=== PATIENT | male | born 1975 | race African-American/Black ===

== ENCOUNTER 2016-02-15 04:25 | Inpatient (IN) | payer MEDICARE, OTHER ==
[~2016-02-15] VITALS: Ht 180.3 cm; Wt 99.3 kg
[2016-02-15 06:26] VITALS: BP 127/68; PULSE 96; RESP 16; TEMP 97.9; O2SAT 98
[2016-02-15] MEDS ORDERED: LORazepam 2 MG/ML VIAL IM PRN (06:45)
[2016-02-15] MEDS ORDERED: ALUMINUM/MAGNESIUM/SIMETH 30 ML CUP PO PRN (06:45)
[2016-02-15] MEDS ORDERED: MAGNESIUM HYDROXIDE SUSP 30 ML CUP PO PRN (06:45)
[2016-02-15] MEDS: NICOTINE 14 MG/24 HR PATCH T-DERMAL SCH (09:00)
[2016-02-15] MEDS: buPROPion HCL 75 MG TAB PO SCH ×2 (09:40→21:17)
[2016-02-15] MEDS: LORazepam 0.5 MG TAB PO PRN ×2 (09:43→17:50)
[2016-02-15] MEDS: ACETAMINOPHEN 325 MG TAB PO PRN (17:53)
[2016-02-15 19:51] VITALS: BP 128/79; PULSE 78; RESP 18; TEMP 97.9; O2SAT 96
[2016-02-15] MEDS ORDERED: REMOVE OLD NICOTINE PATCH T-DERMAL SCH (21:00)
[2016-02-15] MEDS ORDERED: QUEtiapine FUMARATE 100 MG TAB PO SCH (21:00)
[2016-02-15] MEDS: traZODone HCL 50 MG TAB PO SCH (21:17)
[2016-02-16] MEDS: LORazepam 0.5 MG TAB PO PRN (00:21)
[2016-02-16] MEDS: ACETAMINOPHEN 325 MG TAB PO PRN ×2 (00:22→11:53)
[2016-02-16 06:00] VITALS: BP 102/64; PULSE 85; RESP 18; TEMP 98.4; O2SAT 100
[2016-02-16] MEDS ORDERED: REMOVE OLD NICOTINE PATCH T-DERMAL SCH (09:00)
[2016-02-16] MEDS: NICOTINE 14 MG/24 HR PATCH T-DERMAL SCH (09:00)
[2016-02-16] MEDS: buPROPion HCL 75 MG TAB PO SCH ×2 (09:43→20:50)
[2016-02-16] MEDS ORDERED: ALUMINUM/MAGNESIUM/SIMETH 30 ML CUP PO PRN ×2 (10:15)
[2016-02-16] MEDS ORDERED: FLUMAZENIL 1 MG/10 ML VIAL IV PUSH PRN (10:15)
[2016-02-16] MEDS ORDERED: NICOTINE 21 MG/24 HR PATCH T-DERMAL SCH (10:15)
[2016-02-16] MEDS ORDERED: MAGNESIUM HYDROXIDE SUSP 30 ML CUP PO PRN ×2 (10:15)
[2016-02-16] MEDS ORDERED: LORazepam 2 MG/ML VIAL IV PUSH PRN ×4 (10:15)
[2016-02-16] MEDS ORDERED: ACETAMINOPHEN 325 MG TAB PO PRN (10:15)
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
[2016-02-16] MEDS: NICOTINE 21 MG/24 HR PATCH T-DERMAL SCH (10:54)
[2016-02-16] MEDS: LORazepam 2 MG TAB PO PRN ×2 (11:52→20:51)
[2016-02-16] MEDS: LORazepam 1 MG TAB PO PRN (15:07)
[2016-02-16 19:33] VITALS: BP 126/71; PULSE 78; RESP 16; TEMP 98.4; O2SAT 97
[2016-02-16] MEDS: traZODone HCL 50 MG TAB PO SCH (20:50)
[2016-02-16] MEDS: QUEtiapine FUMARATE 200 MG TAB PO SCH (20:51)
[2016-02-17 05:52] VITALS: BP 113/59; PULSE 81; RESP 16; TEMP 98.2; O2SAT 96
[2016-02-17] MEDS: REMOVE OLD NICODERM (NICOTINE) PATCH TD SCH (09:00)
[2016-02-17] MEDS: buPROPion HCL 75 MG TAB PO SCH ×2 (09:00→20:57)
[2016-02-17] MEDS: NICOTINE 21 MG/24 HR PATCH T-DERMAL SCH (09:00)
[2016-02-17] MEDS: LORazepam 2 MG TAB PO PRN ×2 (09:29→20:57)
--- NOTE | 2016-02-17 12:33 | HHI.PYPN ---
Subjective Remarks Patient seen and examined with counselor. Chart reviewed. Case discussed with nursing staff. On my examination today, the patient says that his goal in coming into the hospital was to get into a "28 day program." He reports a history of "schizophrenia and manic depression." He says that his current medication regimen works fairly well, although he remains a little dysphoric. He says that "I don't have those symptoms that make me run around." He denies AVH at this time. No SI or HI. Main concern seems to be length of stay, and I do see from Dr. Lorenzo's note that he is having housing issues presently. When I explain that we are a crisis stabilization unit with a far shorter average length of stay than he apparently is hoping for, he asks to be transferred elsewhere. Counselor has tried to assist with this but there are apparently issues to do with lack of days for inpatient services, please see her notes. No side effects from medications. Patient has agreed to remain voluntarily at this time. Review of Systems Other No reported physical complaints. Objective Alert: Yes [place]: Person, Place, Date, Situation Mood: Calm Affect: Restricted (mildly dysphoric) Memory Intact: Comment (intact on clinical exam) Hallucinations: Other (No AVH) Delusions: No Delusion Type: Other (No delusions) Suicidal: Ideation (No SI) Homicidal: Ideation (No HI) Insight/Judgement Fair Remarks TP linear. Speech wnl for rate, tone, volume. No motoric abnormalities noted. No signs of withdrawal noted. Labs No new labs. 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 Continue CIWA for any GABAergic withdrawal. Continue other medications and care as ordered. Justification for Cont. Inpt. Monitoring for safety. Discharge Planning Counselor working with patient to try to get him to a chem dep treatment program. If patient is not eligible for these services, we will plan to monitor briefly for safety and discharge with outpatient follow up. Request HC Surrog/Guard Advoc?: No Raul Poole MD Feb 17, 2016 12:33
[2016-02-17] MEDS: QUEtiapine FUMARATE 25 MG TAB PO SCH (13:00)
[2016-02-17] MEDS: LORazepam 1 MG TAB PO PRN (14:50)
[2016-02-17 20:33] VITALS: BP 118/56; PULSE 80; RESP 16; TEMP 97.2; O2SAT 97
[2016-02-17] MEDS: traZODone HCL 50 MG TAB PO SCH (20:57)
[2016-02-17] MEDS: QUEtiapine FUMARATE 200 MG TAB PO SCH (20:57)
[2016-02-18 06:34] VITALS: BP 110/59; PULSE 80; RESP 18; TEMP 97.1; O2SAT 99
[2016-02-18] MEDS: QUEtiapine FUMARATE 25 MG TAB PO SCH (08:20)
[2016-02-18] MEDS: buPROPion HCL 75 MG TAB PO SCH ×2 (08:20→20:19)
[2016-02-18] MEDS: LORazepam 2 MG TAB PO PRN (08:30)
[2016-02-18] MEDS: REMOVE OLD NICODERM (NICOTINE) PATCH TD SCH (09:00)
[2016-02-18] MEDS: NICOTINE 21 MG/24 HR PATCH T-DERMAL SCH (09:00)
--- NOTE | 2016-02-18 11:57 | HHI.PYPN ---
Subjective Remarks Patient seen and examined with counselor, occupational therapist and nursing staff in treatment team. Chart reviewed. Case discussed with treatment team. On my examination today, patient presents as argumentative, hostile and faultfinding. He tries mightily to put the treatment team on the defensive. He is still fixated on length of stay issues and threatens that if we don't keep him long enough for his satisfaction, he'll simply come back and have himself re-hospitalized. Attempts by the treatment team to refocus the discussion to patient's present problems meet with limited success. For me, he continues to describe vague AH but bristles when I try to clarify his symptomatology. He does not describe any SI or HI. No side effects from medications. We discuss titrating his Seroquel and he is agreeable to this. Review of Systems Other No reported physical complaints. Objective Alert: Yes [place]: Person, Place, Date, Situation Mood: Angry, Oppositional Affect: Restricted Memory Intact: Comment (remains intact) Hallucinations: Auditory (Reports vague AH as detailed above), Visual (No VH) Delusions: No Delusion Type: Other (No delusions) Suicidal: Ideation (no SI) Homicidal: Ideation (no HI) Insight/Judgement Fair Remarks No abnormal motor movements noted. Thought process linear but fixated on issues noted above. Speech little bit loud and angry. Labs Labs reviewed. No new labs. 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 Titrate Seroquel to 100/100/400mg to target reported psychiatric symptomatology. Continue other psychotropics as ordered. Continue other medications and care as ordered. Justification for Cont. Inpt. Medication adjustments in process Discharge Planning Pending outcome of observation Request HC Surrog/Guard Advoc?: No Raul Poole MD Feb 18, 2016 11:57
[2016-02-18] MEDS: QUEtiapine FUMARATE 100 MG TAB PO SCH (13:00)
[2016-02-18] MEDS: LORazepam 1 MG TAB PO PRN ×2 (13:29→20:18)
[2016-02-18 18:54] VITALS: BP 138/69; PULSE 100; RESP 18; TEMP 98.6; O2SAT 97
[2016-02-18] MEDS: traZODone HCL 50 MG TAB PO SCH (20:18)
[2016-02-18] MEDS: QUEtiapine FUMARATE 200 MG TAB PO SCH (20:18)
[2016-02-18] MEDS: ACETAMINOPHEN 325 MG TAB PO PRN (20:21)
[2016-02-19 05:45] VITALS: BP 116/58; PULSE 60; RESP 18; TEMP 98.1; O2SAT 97
[2016-02-19] MEDS: NICOTINE 21 MG/24 HR PATCH T-DERMAL SCH (09:00)
[2016-02-19] MEDS: REMOVE OLD NICODERM (NICOTINE) PATCH TD SCH (09:00)
[2016-02-19] MEDS: buPROPion HCL 75 MG TAB PO SCH (09:46)
[2016-02-19] MEDS: QUEtiapine FUMARATE 100 MG TAB PO SCH ×2 (09:47→13:36)
[2016-02-19] MEDS: ACETAMINOPHEN 325 MG TAB PO PRN (09:48)
[2016-02-19] MEDS ORDERED: BUPR150CR PO (10:24)
[2016-02-19] MEDS ORDERED: SERO100T PO (10:24)
[2016-02-19] MEDS ORDERED: QUET1TAB9 PO (10:24)
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
[2016-02-19] MEDS: LORazepam 1 MG TAB PO PRN (11:06)
== END 2016-02-19 16:35 | disposition home or self-care (01) | DRG 897 ==
LOC: H270 06:00
PROVIDERS: ADMIT Psychiatry & Neurology Psychiatry; ATTEND Psychiatry & Neurology Psychiatry
DX: F19.14 Other psychoactive substance abuse with psychoactive substance-induced mood disorder (principal); F10.10 Alcohol abuse, uncomplicated; F60.2 Antisocial personality disorder; F12.10 Cannabis abuse, uncomplicated; M25.561 Pain in right knee; G89.29 Other chronic pain; Z59.0 Homelessness; Z62.810 Personal history of physical and sexual abuse in childhood

== ENCOUNTER 2016-04-02 12:52 | Emergency (ER) | payer MEDICARE ==
[~2016-04-02] VITALS: Ht 180.3 cm; Wt 100.0 kg
[~2016-04-02 12:52] MED LIST: BUPR150CR PO; QUET1TAB9 PO; SERO100T PO
[2016-04-02 12:57] VITALS: BP 144/82; PULSE 86; RESP 14; TEMP 97.9; O2SAT 98
[2016-04-02] MEDS ORDERED: QUET1TAB9 PO (13:47)
--- NOTE | 2016-04-02 13:47 | PD ---
HPI Chief Complaint: Medication Refill Request Time Seen by Provider: 13:44 Travel History International Travel<30 days: No Contact w/Intl Traveler<30days: No Traveled to known affect area: No History of Present Illness HPI Patient comes in requesting a refill of his Seroquel 400 mg. Patient states that he lost the prescriptions that he was given previously however he had an old prescription that he just recently finished and has no more refills. Patient denies any fevers, chest pain, shortness of breath, headache, nausea, vomiting, abdominal pain, or other concerns. PFSH Past Medical History Psychiatric: Yes Social History Tobacco Use: No Allergies-Medications (Allergen,Severity, Reaction): Coded Allergies: No Known Allergies (Unverified , 02/15/16) Reported Meds & Prescriptions Reported Meds & Active Scripts Active Quetiapine (Quetiapine Fumarate) 200 Mg Tab 400 Mg PO HS 7 Days Wellbutrin SR 12 HR (Bupropion HCl) 150 Mg Tab 150 Mg PO Q12HR 10 Days Seroquel (Quetiapine Fumarate) 100 Mg Tab 100 Mg PO BID@,13 10 Days Review of Systems Except as stated in HPI: all other systems reviewed are Neg Physical Exam Narrative GENERAL: Well-developed, overly nourished, in no acute distress, and non-ill appearing. SKIN: Warm and dry. HEAD: Atraumatic. Normocephalic. EYES: Pupils equal and round. EOMI. No scleral icterus. No injection or drainage. ENT: No nasal bleeding or discharge. Mucous membranes pink and moist. NECK: Trachea midline. Supple. No nuclear rigidity. RESPIRATORY: No accessory muscle use. No respiratory distress. MUSCULOSKELETAL: No obvious deformities. No clubbing. No cyanosis. No edema. Full range of motion. NEUROLOGICAL: Awake and alert. No obvious cranial nerve deficits. Motor grossly within normal limits. Normal speech. PSYCHIATRIC: Appropriate mood and affect; insight and judgment normal. Data Data Last Documented VS Vital Signs Date Time Temp Pulse Resp B/P Pulse Ox O2 Delivery O2 Flow Rate FiO2 04/02/16 12:57 97.9 86 14 144/82 98 MDM Medical Decision Making Medical Screen Exam Complete: Yes Emergency Medical Condition: No Differential Diagnosis Medication refill, substance abuse, mood disorder, other Narrative Course Patient in no obvious distress upon re-evaluation. Patient was asked if they wanted to speak to my attending, which the patient did not wish to do at this time. Any questions/concerns in reference to patient diagnosis/condition discussed and clarified prior to patient's discharge. Reinforced sheer importance of close follow up with patient's primary physician or primary care clinic. Instructed patient to return to ED immediately, if symptoms return/ worsen. Pt showed understanding of above instructions. Further instructions and recommendations were detailed in discharge paperwork. Pt ambulated without difficulty out of ED at discharge. Diagnosis Primary Impression: Medication refill Referrals: [facility] Patient Instructions: General Instructions, Medication Refill, ED Additional Instructions: Follow-up with your primary care physician and/or psychiatrist as soon as possible for additional medication refills. Take all medication as prescribed. Return to the emergency department if symptoms get worse. Med/Other Pt SpecificInfo: Prescription(s) given Scripts Quetiapine 200 Mg [id number] Mg PO HS 7 Days Ref 0 Prov:Martin Garcia MD 04/02/16 Disposition: 01 DISCHARGE HOME Condition: Stable Wilmer Amaro Apr 02, 2016 13:46
== END 2016-04-02 14:37 | disposition home or self-care (01) ==
LOC: NEPB 12:52
DX: Z76.0 Encounter for issue of repeat prescription (principal); Z86.59 Personal history of other mental and behavioral disorders
CPT/HCPCS: 99281

== ENCOUNTER 2016-05-18 13:56 | Emergency (ER) | payer MEDICARE, OTHER ==
[2016-05-18 14:35] VITALS: BP 136/64; PULSE 81; RESP 18; TEMP 98.5; O2SAT 96
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
[2016-05-18 17:57] LABS: AUTOMATED NEUTROPHIL # 3.2 TH/MM3 (1.8-7.7); BASOPHIL % 0.4 % (0.0-2.0); EOSINOPHIL # 0.2 TH/MM3 (0-0.4); EOSINOPHIL % 3.4 % (0.0-4.0); HEMATOCRIT 42.4 % (39.0-51.0); HEMO FLAGS DIFF FINAL; LYMPH % 38.8 % (9.0-44.0); LYMPHOCYTE # 2.8 TH/MM3 (1.0-4.8); MEAN CELL VOLUME 88.4 FL (80.0-100.0); MEAN CORPUSCULAR HGB CONC 32.8 % (32.0-36.0); MONO % 13.1 % (0.0-8.0); NEUT % 44.3 % (16.0-70.0); PLATELET COUNT 240 TH/MM3 (150-450); RED CELL DISTRIBUTION WIDTH 13.2 % (11.6-17.2); WHITE BLOOD COUNT 7.2 TH/MM3 (4.0-11.0)
[2016-05-18 18:19] LABS: ALT (GPT) 40 U/L (12-78); ANION GAP 5 MEQ/L (5-15); AST (GOT) 48 U/L (15-37); BICARBONATE 31.9 MEQ/L (21.0-32.0); BLOOD UREA NITROGEN 12 MG/DL (7-18); CHLORIDE 103 MEQ/L (98-107); GLOMERULAR FILTRATION RATE 77 ML/MIN (>89); SODIUM (NA) 140 MEQ/L (136-145)
[2016-05-18 18:24] LABS: ALKALINE PHOSPHATASE 67 U/L (45-117); TOTAL BILIRUBIN ADULT 0.5 MG/DL (0.2-1.0)
[2016-05-18 18:36] VITALS: BP 101/53; PULSE 87; RESP 18; O2SAT 98
[2016-05-18 19:20] LABS: ACETAMINOPHEN LESS THAN 2.0 MCG/ML (10.0-30.0)
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
[2016-05-18] MEDS ORDERED: AUGM875T PO (20:49)
[2016-05-18] MEDS: AMOXICILLIN/CLAVULANATE K 875 MG TAB PO SCH (21:00)
[2016-05-18 21:03] LABS: AMPHETAMINE, URINE POS (NEG); BARBITURATES, URINE NEG (NEG); COCAINE, URINE POS (NEG)
[2016-05-18] MEDS ORDERED: IBUPROFEN 600 MG TAB PO ONE (21:15)
[2016-05-18 22:00] VITALS: BP 133/57; PULSE 83; RESP 17; O2SAT 95
[2016-05-18] MEDS ORDERED: diphenhydrAMINE HCL 50 MG CAP PO ONE (23:00)
[2016-05-19 01:59] VITALS: BP 131/76; PULSE 83; RESP 19; O2SAT 95
[2016-05-19 06:00] VITALS: BP 117/58; PULSE 69; RESP 18; O2SAT 96
[2016-05-19] MEDS: AMOXICILLIN/CLAVULANATE K 875 MG TAB PO SCH ×2 (08:58→21:00)
--- NOTE | 2016-05-19 09:21 | PD ---
History of Present Illness Chief Complaint: Psychiatric Symptoms Time Seen by Provider: 09:00 Travel History International Travel<30 Days: No Contact w/Intl Traveler<30days: No Legal Status Legal Status: Sanchez Act Sanchez Act Signed By: Mathew Rivera History of Present Illness: History of Present Illness HPI 41-year-old male presents to the emergency Department under Sanchez act initiated by GLORIA . As per the report he called the police requesting mental health treatment and reporting that he was feeling depressed and was hearing voices in his head telling him to harm himself. The patient states he is currently living in a jainism. He states that he has been not taking his psychiatric medications for approximately one month since he was kicked out a sober house. He states he was kicked out for drinking alcohol during . He does admit to illicit drug use. He states that he uses cocaine "any way I can". He also states that he uses whatever pills he can find. His current toxicology report is positive for cocaine, amphetamines and cannabinoids. As per EMR reviewed he was last seen at [facility] in March when he presented requesting a medication refill. Prior to that visit he was admitted to [facility] on Feb 15 2016 for treatment of substance induced mood disorder. Patient is seen in [facility]. Awake, alert and oriented,. He is irritable with staff as well as with financial underwriter. He is evasive and is vague regarding history as well as with current symptoms. He states that he has been having a " terrible time" since being off his medication due to being on the streets. He states that he is having trouble " thinking" and wants to get back on his medication. He has continued to use substances since his discharge from sober living. He advises me that " I need at least 4 to 5 days here to get stabilized". When I tell him that we do not have a detox facility here or a substance abuse treatment and that I feel he would benefit from both substance abuse as well as mental health treatment and that we will recommend admission to such a program he becomes angry and states that he needs to be somewhere in 4 to 5 days and can't really be anywhere for longer than that. I have advised him that if he does not wish to receive such treatment that he can be discharged. He agrees to stay and also requests to have medication for his" thoughts.". PFSH Past Medical History Psychiatric: Yes Psychiatric History Psychiatric History Hx Psychiatric Treatment: [facility] Feb 14 to 2016. History of Inpatient Treatment: Yes Guns or firearms in home: No Social History Single , homeless male. On disability for psychiatric diagnosis of bipolar disorder, schizoaffective type. Hx Alcohol Use: Yes Hx Tobacco Use: Yes Hx Substance Use: Yes Allergies-Medications (Allergen,Severity, Reaction): Coded Allergies: No Known Allergies (Unverified , 02/15/16) Reported Meds & Prescriptions Reported Meds & Active Scripts Active Augmentin (Amoxicillin-Clavulanate) 875-125 mg Tab 875 Mg PO BID 10 Days not for use in CrCl <30 ml/min. Review of Systems Except as stated in HPI: all other systems reviewed are Neg Eyes: COMPLAINS OF: Eye inflammation, Eye pain (left eye) Exam Alert: Yes [place]: Person (ox4) Mood: Angry Affect: Appropriate Speech: Clear, Logical Eye Contact: Indirect Memory Intact: Comment (not formally tetsted) Delusions: No Suicidal: Ideation (none reported at this time) Homicidal: Ideation (none reported at this time) Insight/Judgement poor. poor MDM Medical Decision Making Medical Record Reviewed: Yes Assessment/Plan 41 year old with history of substance abuse as wel as substance induced mood disorder who presents to ED after he called the police requesting mental health treatment. patient is currently under the influence of amphetamines as well as cocaine. he remains irritable and demanding to be admitted for 4 to 5 days to get back on his medications. The substance use as well as his homelessness is certainly a big contributing factor to his presentation but out of an abundance of caution I will place him to [facility] for treatment of both substance abuse as well as his mood disorder. Orders Psych Screen (05/18/16 14:22) Diet Regular Basic (05/18/16 Dinner) Complete Blood Count With Diff (05/18/16 17:00) Comprehensive Metabolic Panel (05/18/16 17:00) Drug Screen, Random Urine (05/18/16 17:00) Alcohol (Ethanol) (05/18/16 17:00) Ct Brain W/O Iv Contrast(Rout) (05/18/16 ) Ct Facial Bones W/O Iv Cont (05/18/16 ) Salicylates (Aspirin) (05/18/16 17:19) Tylenol (Acetaminophen) (05/18/16 17:18) Amoxicil-Clavulanate (Augmentin) (05/18/16 21:00) Ibuprofen (Motrin) (05/18/16 21:15) Diphenhydramine (Benadryl) (05/18/16 23:00) Diet Regular Basic (05/19/16 Breakfast) Diet Regular Basic (05/19/16 Lunch) Results Vital Signs Date Time Temp Pulse Resp B/P Pulse Ox O2 Delivery O2 Flow Rate FiO2 05/19/16 06:00 69 18 117/58 96 Room Air 05/19/16 01:59 83 19 131/76 95 Room Air 05/18/16 22:00 83 17 133/57 95 Room Air 05/18/16 18:36 87 18 101/53 98 Room Air 05/18/16 14:35 98.5 81 18 136/64 96 Room Air Laboratory Tests Test 05/18/16 05/18/16 05/18/16 17:18 17:28 20:12 White Blood Count 7.2 Red Blood Count 4.80 Hemoglobin 13.9 Hematocrit 42.4 Mean Corpuscular Volume 88.4 Mean Corpuscular Hemoglobin 29.0 Mean Corpuscular Hemoglobin 32.8 Concent Red Cell Distribution Width 13.2 Platelet Count 240 Mean Platelet Volume 8.6 Neutrophils (%) (Auto) 44.3 Lymphocytes (%) (Auto) 38.8 Monocytes (%) (Auto) 13.1 Eosinophils (%) (Auto) 3.4 Basophils (%) (Auto) 0.4 Neutrophils # (Auto) 3.2 Lymphocytes # (Auto) 2.8 Monocytes # (Auto) 0.9 Eosinophils # (Auto) 0.2 Basophils # (Auto) 0.0 CBC Comment DIFF FINAL Differential Comment Sodium Level 140 Potassium Level 4.0 Chloride Level 103 Carbon Dioxide Level 31.9 Anion Gap 5 Blood Urea Nitrogen 12 Creatinine 1.27 Estimat Glomerular Filtration 77 Rate Random Glucose 78 Calcium Level 9.0 Total Bilirubin 0.5 Aspartate Amino Transf 48 (AST/SGOT) Alanine Aminotransferase 40 (ALT/SGPT) Alkaline Phosphatase 67 Total Protein 7.7 Albumin 3.9 Acetaminophen Level LESS THAN 2.0 Ethyl Alcohol Level LESS THAN 3 Salicylates Level 3.1 Urine Opiates Screen NEG Urine Barbiturates Screen NEG Urine Amphetamines Screen POS Urine Benzodiazepines Screen NEG Urine Cocaine Screen POS Urine Cannabinoids Screen POS Diagnosis Primary Impression: Substance induced mood disorder Additional Impression: Substance abuse Referrals: Dmitry Beaulieu DMD call for appointment Oral Maxillofacial Surgeon 2 days Additional Instructions: Take Augmentin as directed. Sinus precautions. Do not blow your nose. Do not sneeze through your nose. Do not drink through a straw. Follow up with maxillofacial surgeon. Dr. Beaulieu is the surgeon soapstoner today. Return to the emergency department for any acute, worsening of symptoms. Prescriptions Amoxicillin-Clavulanate (Augmentin)875-125 mg [id number] Mg PO BID 10 Days Ref 0 not for use in CrCl <30 ml/min. Prov:Loren Austin [facility] 05/18/16 Condition: Stable Problem Qualifiers Rebekah Lemos [facility] May 19, 2016 09:21
[2016-05-19] MEDS ORDERED: diphenhydrAMINE HCL 50 MG CAP PO ONE (09:30)
[2016-05-19] MEDS ORDERED: HALOPERIDOL 5 MG TAB PO ONE (09:30)
[2016-05-19] MEDS ORDERED: AMOXICILLIN/CLAVULANATE K 875 MG TAB PO SCH (09:30)
[2016-05-19 10:00] VITALS: BP 99/50; PULSE 73; RESP 18; O2SAT 96
[2016-05-19 18:57] VITALS: BP 117/55; PULSE 67; RESP 18; O2SAT 97
[2016-05-19 22:10] VITALS: BP 144/55; PULSE 63; RESP 17; O2SAT 95
[2016-05-20 02:12] VITALS: BP 145/83; PULSE 60; RESP 16; O2SAT 97
[2016-05-20 06:32] VITALS: BP 123/74; PULSE 60; RESP 19; O2SAT 98
[2016-05-20] MEDS: AMOXICILLIN/CLAVULANATE K 875 MG TAB PO SCH (09:00)
== END 2016-05-20 14:15 ==
LOC: NEDAMB 13:56 → NEPJ 05-20 14:15
DX: F19.94 Other psychoactive substance use, unspecified with psychoactive substance-induced mood disorder (principal); S02.40FA Zygomatic fracture, left side, initial encounter for closed fracture; S02.80XA Fracture of other specified skull and facial bones, unspecified side, initial encounter for closed fracture; Z87.891 Personal history of nicotine dependence; X58.XXXA Exposure to other specified factors, initial encounter; Y93.9 Activity, unspecified; Y92.9 Unspecified place or not applicable; Y99.8 Other external cause status
CPT/HCPCS: 70450; 70486; 80053; 80307; 85025; 99285; Q0163

== ENCOUNTER 2017-02-10 08:57 | Emergency (ER) | payer MEDICARE, OTHER ==
[~2017-02-10] VITALS: Ht 180.3 cm; Wt 103.0 kg
[~2017-02-10 08:57] MED LIST changes: +AUGM875T PO; -BUPR150CR PO; -QUET1TAB9 PO; -SERO100T PO
[2017-02-10 08:58] VITALS: BP 153/79; PULSE 82; RESP 18; TEMP 99; O2SAT 96
[2017-02-10] MEDS ORDERED: SERO200T PO (09:08)
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
[2017-02-10] MEDS ORDERED: KETOROLAC TROMETHAMINE 60 MG/2 ML (IM) VIAL IM ONE (09:30)
[2017-02-10] MEDS ORDERED: NABU1TAB37 PO (09:47)
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
== END 2017-02-10 10:27 | disposition home or self-care (01) ==
LOC: NEPD 08:57
DX: S60.221A Contusion of right hand, initial encounter (principal); W23.0XXA Caught, crushed, jammed, or pinched between moving objects, initial encounter; F32.9 Major depressive disorder, single episode, unspecified; Z72.0 Tobacco use
CPT/HCPCS: 73130; 96372

== ENCOUNTER 2017-02-15 16:57 | Emergency (ER) | payer MEDICARE, OTHER ==
[~2017-02-15 16:57] MED LIST changes: -AUGM875T PO; +NABU1TAB37 PO; +SERO200T PO
[2017-02-15 16:59] VITALS: BP 158/90; PULSE 88; RESP 18; TEMP 98.6; O2SAT 97
--- NOTE | 2017-02-15 20:43 | PD ---
HPI Chief Complaint: Skin Problem Time Seen by Provider: 20:36 Travel History International Travel<30 days: No Contact w/Intl Traveler<30days: No Traveled to known affect area: No History of Present Illness HPI 42-year-old male presents to the emergency Department with complaint of swelling over his right fourth knuckle 2 days. He was seen here 5 days ago for a contusion of his right hand after slamming it in a door multiple times, per the patient. He had a cut to the knuckle and he says he thinks it's gotten infected. He has not taken antibiotics previously. He reports decreased range of motion of his fingers. Denies fever, vomiting. Has not taken any medications or tried any treatments to alleviate his symptoms. Rates pain 10/ 10. Describes it as throbbing. No known relieving factors. Constantly aggravated. No known allergies. Denies significant past medical history. Has no other medical complaints. No other modifying factors or associated signs and symptoms. PFSH Past Medical History Depression: Yes Psychiatric: Yes Immunizations Current: Yes Tetanus Vaccination: Unknown Influenza Vaccination: No Past Surgical History Abdominal Surgery: Yes (hernia) Social History Alcohol Use: Yes (socially ) Tobacco Use: Yes (1/2) Substance Use: No Allergies-Medications (Allergen,Severity, Reaction): Coded Allergies: No Known Allergies (Unverified Adverse Reaction, Unknown, 02/10/17) Reported Meds & Prescriptions Reported Meds & Active Scripts Active Nabumetone 500 Mg Tab 500 Mg PO BID Reported Seroquel (Quetiapine Fumarate) 200 Mg Tab 200 Mg PO HS Review of Systems Except as stated in HPI: all other systems reviewed are Neg Physical Exam Narrative GENERAL: Well-nourished, well-developed black male patient, in no acute distress ; afebrile, nontoxic-appearing SKIN: There is an indurated area to the right 4th MCP joint which measures about 3 cm in diameter. It is fluctuant but there is no pointing or drainage. No lymphangitis noted. Patient unable to extend or flex third, fourth, fifth fingers of the right hand; sensory intact; 2+ radial pulse. HEAD: Atraumatic. Normocephalic. EYES: Pupils equal and round. No scleral icterus. No injection or drainage. ENT: Mucosa pink and moist. Airway patent. NECK: Trachea midline. CARDIOVASCULAR: Regular rate. RESPIRATORY: No accessory muscle use. GASTROINTESTINAL: Flat. MUSCULOSKELETAL: No obvious deformities. No clubbing. No cyanosis. No edema. NEUROLOGICAL: Awake and alert. Oriented 3. No obvious cranial nerve deficits. Motor grossly within normal limits. Normal speech. PSYCHIATRIC: Appropriate mood and affect; insight and judgment normal. Data Data Last Documented VS Vital Signs Date Time Temp Pulse Resp B/P (MAP) Pulse Ox O2 Delivery O2 Flow Rate FiO2 02/15/17 16:59 98.6 88 18 158/90 (112) 97 Orders Orders Oxycodone-Acetamin 5-325 Mg (Percocet (02/15/17 20:45) Hand, Complete ([id number]) (02/15/17 20:40) Complete Blood Count With Diff (02/15/17 20:45) Basic Metabolic Panel (Bmp) (02/15/17 20:45) Iv Access Insert/Monitor (02/15/17 20:45) Fentanyl Inj (Fentanyl Inj) (02/15/17 20:45) Ondansetron Inj (Zofran Inj) (02/15/17 20:45) MDM Medical Decision Making Medical Screen Exam Complete: Yes Emergency Medical Condition: Yes Medical Record Reviewed: Yes Differential Diagnosis Infected wound, septic joint, abscess Narrative Course 42-year-old male with swelling to his right fourth MCP joint area. He was seen here on February 10 for right hand contusion and right hand x-ray was unremarkable. The swelling to the area started 2 days ago per the patient. He is unable to perform range of motion of the right hand third fourth and fifth fingers. He is afebrile and nontoxic appearing. Denies fever, vomiting. No lymphangitis. Right hand x-ray ordered. 2044: Report given to Logan Francisco PA-C at this time. He will assume patient care. See his note for final patient disposition. Chana Salmeron Feb 15, 2017 20:43
[2017-02-15] MEDS ORDERED: oxyCODONE/ACETAMINOPHEN 5 MG/325 MG TAB PO ONE (20:45)
[2017-02-15] MEDS ORDERED: ONDANSETRON HCL 4 MG/2 ML VIAL IV PUSH ONE (20:45)
--- NOTE | 2017-02-15 21:08 | RADRPT ---
EXAM DATE/TIME: 02/15/2017 20:53 [facility] COMPARISON: No previous studies available for comparison. INDICATIONS : Right hand pain and swelling. Inpact with tree four days ago. Abcess near 4th MCPJ. MEDICAL HISTORY : None. SURGICAL HISTORY : None. ENCOUNTER: [facility] ACUITY: 4 - 6 days PAIN SCORE: 10/10 LOCATION: Right hand. FINDINGS: Three view examination of the right hand demonstrates no dislocation, or fracture. The carpal bones appear intact. The interphalangeal and metacarpophalangeal joints are intact. Bony mineralization is normal. CONCLUSION: Unremarkable examination of the right hand except marked soft tissue swelling overlying the hand. Nick Couch MD on February 15, 2017 at 21:06 Board Certified Radiologist. This report was verified electronically.
--- NOTE | 2017-02-15 21:16 | PD ---
Physical Exam Date Seen by Provider: Feb 15, 2017 Narrative 42-year-old male presents emergency department with exquisite pain and a lump over his right fourth MCP approximately 3 days. Patient states that he slammed his hand in a car door about a week ago and developed this bump on his hand over the last couple days. Says the pain is excruciating and is concerned that it is some sort of infection. Please see the previous provider's note for more information. There was a concern for osteomyelitis so an additional x-ray was ordered. Last Impressions Hand X-Ray 02/15/172039 Signed Impressions: Service Date/Time: Wednesday, February 15, 2017 20:53 - CONCLUSION: Unremarkable examination of the right hand except marked soft tissue swelling overlying the hand. Nick Couch MD CBC & BMP Diagram 02/15/17 21:01 Calcium Level 9.0 There is no obvious evidence of extension of this infectious process. Right hand was neurovascularly intact, limited range of motion of fingers because of pain. An incision and drainage performed. INCISION AND DRAINAGE OF ABSCESS: The area was prepped and was sterilely draped. A subcutaneous wheal of 1 % Xylocaine without epinephrine with a total number 1 mL was used to anesthetize the area properly. A number 11 scalpel was used to make a 5 mm incision across the area of the abscess. The abscess was drained, complex loculations were broken down, and irrigated with normal saline. Cultures were obtained. Quarter inch iodoform packing was placed in the wound. Sterile dressing applied. Patient advised to have packing removed in two days. Patient was advised to watch for signs of infection. Patient given wound care instructions. Antibiotics medicine emergency department today. Antibiotics for outpatient use. Patient states understanding and will comply. He's advised to return to the emergency department for worsening or persistent symptoms. Data Data Last Documented VS Vital Signs Date Time Temp Pulse Resp B/P (MAP) Pulse Ox O2 Delivery O2 Flow Rate FiO2 02/15/17 23:05 18 02/15/17 23:04 02/15/17 23:04 98.1 87 100 Orders Orders Oxycodone-Acetamin 5-325 Mg (Percocet (02/15/17 20:45) Hand, Complete ([id number]) (02/15/17 20:40) Complete Blood Count With Diff (02/15/17 20:45) Basic Metabolic Panel (Bmp) (02/15/17 20:45) Iv Access Insert/Monitor (02/15/17 20:45) Fentanyl Inj (Fentanyl Inj) (02/15/17 20:45) Ondansetron Inj (Zofran Inj) (02/15/17 20:45) Acetamin-Hydrocod 325-5 Mg ([place] 5-325 (02/15/17 21:30) Lidocaine 1% Inj (Xylocaine 1% Inj) (02/15/17 21:45) Clindamycin Inj (Cleocin Inj) (02/15/17 22:30) Wound Culture And Gram Stain (02/15/17 22:52) Ed Discharge Order (02/15/17 23:06) Labs Laboratory Tests Test 02/15/17 21:01 White Blood Count 9.6 TH/MM3 Red Blood Count 4.70 MIL/MM3 Hemoglobin 14.6 GM/DL Hematocrit 42.9 % Mean Corpuscular Volume 91.2 FL Mean Corpuscular Hemoglobin 31.1 PG Mean Corpuscular Hemoglobin Concent 34.1 % Red Cell Distribution Width 12.9 % Platelet Count 233 TH/MM3 Mean Platelet Volume 8.8 FL Neutrophils (%) (Auto) 51.3 % Lymphocytes (%) (Auto) 34.4 % Monocytes (%) (Auto) 10.7 % Eosinophils (%) (Auto) 3.2 % Basophils (%) (Auto) 0.4 % Neutrophils # (Auto) 5.0 TH/MM3 Lymphocytes # (Auto) 3.3 TH/MM3 Monocytes # (Auto) 1.0 TH/MM3 Eosinophils # (Auto) 0.3 TH/MM3 Basophils # (Auto) 0.0 TH/MM3 CBC Comment DIFF FINAL Differential Comment Blood Urea Nitrogen 8 MG/DL Creatinine 1.25 MG/DL Random Glucose 79 MG/DL Calcium Level 9.0 MG/DL Sodium Level 137 MEQ/L Potassium Level 3.7 MEQ/L Chloride Level 103 MEQ/L Carbon Dioxide Level 27.5 MEQ/L Anion Gap 7 MEQ/L Estimat Glomerular Filtration Rate 78 ML/[facility] Supervised Visit with ISHA: No Diagnosis Primary Impression: Abscess Referrals: [facility] Additional Instruction: Follow up with your primary care physician within 2-3 days. If your symptoms persist or worsen, return to the emergency department. Keep area clean and dry. You may bathe as normal after 24 hours Change dressings daily. If bleeding starts again, applied pressure and elevate the area. Follow-up in the emergency department in 2 days for wound check. If he developed increased redness, swelling, or pain return to the emergency department. Scripts Ibuprofen (Ibuprofen) 800 Mg Tab 800 MG PO TID for Arthritis Pain for 5 Days, TAB 0 Refills Prov: Tammy Carlson 02/15/17 Sulfamethoxazole-Trimethoprim (Bactrim DS) 800-160 Mg Tab 1 TAB PO BID for Infection, #20 TAB 0 Refills Prov: Tammy Carlson 02/15/17 Disposition: 01 DISCHARGE HOME Condition: Stable Tammy Carlson Feb 15, 2017 21:16
[2017-02-15] MEDS ORDERED: ACETAMINOPHEN/HYDROcodone 325 MG/5 MG TAB PO ONE (21:30)
[2017-02-15] MEDS ORDERED: LIDOCAINE HCL 1% 20 ML VIAL INFIL ONE (21:45)
[2017-02-15 22:11] LABS: BICARBONATE 27.5 MEQ/L (21.0-32.0); CREATININE 1.25 MG/DL (0.60-1.30)
[2017-02-15] MEDS ORDERED: IBUP1TAB7 PO (22:26)
[2017-02-15] MEDS ORDERED: BACT800T5 PO (22:26)
[2017-02-15] MEDS ORDERED: CLINDAMYCIN PHOS 600 MG/4 ML VIAL IM ONE (22:30)
[2017-02-15 23:04] VITALS: BP 135/89; PULSE 87; RESP 18; TEMP 98.1; O2SAT 100
[2017-02-15 23:04] LABS: BASOPHIL % 0.4 % (0.0-2.0); EOSINOPHIL # 0.3 TH/MM3 (0-0.4); EOSINOPHIL % 3.2 % (0.0-4.0); HEMATOCRIT 42.9 % (39.0-51.0); HEMOGLOBIN 14.6 GM/DL (13.0-17.0); LYMPH % 34.4 % (9.0-44.0); LYMPHOCYTE # 3.3 TH/MM3 (1.0-4.8); MEAN CELL VOLUME 91.2 FL (80.0-100.0); MEAN CORPUSCULAR HEMOGLOBIN 31.1 PG (27.0-34.0); MEAN CORPUSCULAR HGB CONC 34.1 % (32.0-36.0); MEAN PLATELET VOLUME 8.8 FL (7.0-11.0); MONO % 10.7 % (0.0-8.0); NEUT % 51.3 % (16.0-70.0); PLATELET COUNT 233 TH/MM3 (150-450); RED CELL DISTRIBUTION WIDTH 12.9 % (11.6-17.2); WHITE BLOOD COUNT 9.6 TH/MM3 (4.0-11.0)
[2017-02-15 23:05] VITALS: RESP 18
== END 2017-02-15 23:18 | disposition home or self-care (01) ==
LOC: NEPC 16:57
DX: L02.511 Cutaneous abscess of right hand (principal); F32.9 Major depressive disorder, single episode, unspecified; F17.200 Nicotine dependence, unspecified, uncomplicated; Z79.899 Other long term (current) drug therapy
CPT/HCPCS: 10060; 73130; 80048; 85025; 87070; 96372; 96374; 96375; 99284; J2405; 87205

== ENCOUNTER 2017-02-17 14:06 | Emergency (ER) | payer MEDICARE, OTHER ==
[~2017-02-17] VITALS: Ht 180.3 cm; Wt 104.5 kg
[2017-02-17 14:06] VITALS: BP 134/91; PULSE 71; RESP 16; TEMP 98.9; O2SAT 98
[~2017-02-17 14:06] MED LIST changes: +BACT800T5 PO; +IBUP1TAB7 PO
--- NOTE | 2017-02-17 17:41 | PD ---
HPI Chief Complaint: Wound/Suture/Staple Re-Check Time Seen by Provider: 17:25 Travel History International Travel<30 days: No Contact w/Intl Traveler<30days: No Traveled to known affect area: No History of Present Illness HPI 42-year-old right-hand dominant male presents to the ED for wound evaluation after I&D of abscess 2 days ago. Patient initially injured his hand a few days before that after he slammed in car door. He had full evaluation at that time. Patient has not begun the Bactrim that was prescribed. He endorses limitation to range of motion secondary to pain. Denies numbness, tingling, weakness, fever, chills, nausea, vomiting. He states his symptoms have improved overall. [facility] Past Medical History Depression: Yes Psychiatric: Yes Immunizations Current: Yes Past Surgical History Abdominal Surgery: Yes (hernia) Social History Alcohol Use: Yes (socially ) Tobacco Use: Yes (1/2) Substance Use: No Allergies-Medications (Allergen,Severity, Reaction): Coded Allergies: No Known Allergies (Unverified Adverse Reaction, Unknown, 02/15/17) Reported Meds & Prescriptions Reported Meds & Active Scripts Active Ibuprofen 800 Mg Tab 800 Mg PO TID 5 Days Bactrim DS (Sulfamethoxazole-Trimethoprim) 800-160 Mg Tab 1 Tab PO BID Nabumetone 500 Mg Tab 500 Mg PO BID Reported Seroquel (Quetiapine Fumarate) 200 Mg Tab 200 Mg PO HS Review of Systems Except as stated in HPI: all other systems reviewed are Neg Physical Exam Narrative GENERAL: Well-nourished, well-developed AA male in NAD SKIN: Focused skin assessment warm/dry. There is a one centimeters surgical incision over the MP joint of the fourth digit of the right hand. Packing was removed easily. No cellulitic streaking or erythema noted. HEAD: Normocephalic. EYES: No scleral icterus. No injection or drainage. NECK: Supple, trachea midline. No JVD or lymphadenopathy. CARDIOVASCULAR: Regular rate and rhythm without murmurs, gallops, or rubs. RESPIRATORY: Breath sounds equal bilaterally. No accessory muscle use. GASTROINTESTINAL: Abdomen soft, non-tender, nondistended. MUSCULOSKELETAL: No cyanosis, or edema. FOCUSED RIGHT UPPER EXTREMITY EXAM: 2+ radial pulse. Patient maintains full flexion, extension and abduction and adduction of the fingers of the right hand. Neurovascularly intact distally. BACK: Nontender without obvious deformity. No CVA tenderness. Data Data Last Documented VS Vital Signs Date Time Temp Pulse Resp B/P (MAP) Pulse Ox O2 Delivery O2 Flow Rate FiO2 02/17/17 14:06 98.9 71 16 134/91 (105) 98 Room Air MDM Medical Decision Making Medical Screen Exam Complete: Yes Emergency Medical Condition: Yes Differential Diagnosis Abscess I&D versus cellulitis versus tenosynovitis versus other Narrative Course 42-year-old right-hand dominant male presents to the ED for wound evaluation after I&D of abscess 2 days ago. Patient initially injured his hand. For that after he slammed in car door. He had full evaluation at that time. On exam there is a 1.5 cm incision over the MP joint of the fourth digit of the right hand. A small amount of purulent drainage is present. Patient retains full, active, painless ROM of the right hand. He has been noncompliant with Bactrim. I offered the patient another prescription but he states that he still has the first one. Dressing was applied. Patient was informed that Bactrim is free at [facility] and instructed to pick this up on his way home and begin taking it immediately. He is instructed return to the ED in 2 days for further evaluation of the wound. He indicated understanding of instructions and is agreeable care plan. He is stable discharged home. Diagnosis Primary Impression: Encounter for wound re-check Additional Impression: Encounter for abscess packing removal Referrals: Primary Care Physician Patient Instructions: Abscess Follow-up (ED), General Instructions Additional Instructions: Keep the wound clean, dry and covered. 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 Return to the ED in 48 hours for wound recheck. Disposition: 01 DISCHARGE HOME Condition: Stable Zunilda Guzman Feb 17, 2017 17:41
== END 2017-02-17 18:08 | disposition home or self-care (01) ==
LOC: NEPK 14:06
DX: S69.91XD Unspecified injury of right wrist, hand and finger(s), subsequent encounter (principal); L02.511 Cutaneous abscess of right hand; F17.210 Nicotine dependence, cigarettes, uncomplicated; W23.0XXD Caught, crushed, jammed, or pinched between moving objects, subsequent encounter; Z48.01 Encounter for change or removal of surgical wound dressing; Z91.14 Patient's other noncompliance with medication regimen
CPT/HCPCS: 99281

== ENCOUNTER 2017-03-11 20:15 | Emergency (ER) | payer MEDICARE, OTHER ==
[2017-03-11 21:07] VITALS: BP 118/71; PULSE 79; RESP 16; TEMP 99; O2SAT 94
[2017-03-11] MEDS ORDERED: SERO200T PO (23:44)
[2017-03-12] MEDS ORDERED: BACT800T5 PO (10:39)
[2017-03-12] MEDS ORDERED: CEPH-460 PO (10:39)
[2017-03-12] MEDS ORDERED: IBUP1TAB7 PO (10:39)
== END 2017-03-12 00:50 | disposition left against medical advice (07) ==
LOC: PHED 20:15
DX: Z53.21 Procedure and treatment not carried out due to patient leaving prior to being seen by health care provider (principal)
CPT/HCPCS: 99281

== ENCOUNTER 2017-03-12 09:51 | Emergency (ER) | payer MEDICARE, OTHER ==
[~2017-03-12] VITALS: Ht 180.3 cm; Wt 102.2 kg
[~2017-03-12 09:51] MED LIST changes: -BACT800T5 PO; -IBUP1TAB7 PO; -NABU1TAB37 PO
[2017-03-12 09:54] VITALS: BP 132/60; PULSE 108; RESP 22; TEMP 98.7; O2SAT 95
[2017-03-12] MEDS ORDERED: CLINDAMYCIN PHOS 600 MG/4 ML VIAL IM ONE (10:15)
[2017-03-12] MEDS ORDERED: LIDOCAINE 2%/EPINEPHrine 1:100,000 20ML MDV NERV BLOCK ONE (10:15)
--- NOTE | 2017-03-12 10:25 | PD ---
HPI Chief Complaint: Skin Problem Time Seen by Provider: 10:09 Travel History International Travel<30 days: No Contact w/Intl Traveler<30days: No Traveled to known affect area: No History of Present Illness HPI Length 42-year-old male presents emergency department with question of abscess to the left medial wrist. He states it could have been a "spider bite". Patient had recent cellulitis to the right hand with abscess after closing it in a door. He was treated with Bactrim and drainage at that time. He states he has been off those medications approximately 3 days. He states the area on the wrist started approximately 3 days ago as well and has worsened since that time. He has pain radiating up the proximal forearm with a red streak present. Pain is rated as an 8 out of 10. There is a small amount of bloody purulent drainage from the abscess area. Patient has no fever and vitals are stable. He has no known drug allergies. PFSH Past Medical History Depression: Yes Diminished Hearing: No Psychiatric: Yes (BIPOLAR/DEPRESSION) Immunizations Current: Yes Influenza Vaccination: No Past Surgical History Abdominal Surgery: Yes (UMBILICAL HERNIA) Social History Alcohol Use: Yes (SOCIALLY) Tobacco Use: Yes (02/09 PPD) Substance Use: No Allergies-Medications (Allergen,Severity, Reaction): Coded Allergies: No Known Allergies (Verified Adverse Reaction, Unknown, 03/11/17) Reported Meds & Prescriptions Reported Meds & Active Scripts Active Keflex (Cephalexin) 500 Mg Cap 500 Mg PO Q8H 7 Days Bactrim DS (Sulfamethoxazole-Trimethoprim) 800-160 Mg Tab 1 Tab PO BID Ibuprofen 800 Mg Tab 800 Mg PO Q8H PRN Reported Seroquel (Quetiapine Fumarate) 200 Mg Tab 200 Mg PO DAILY Review of Systems Except as stated in HPI: all other systems reviewed are Neg General / Constitutional: No: Fever, Chills Eyes: No: Visual changes HENT: No: Headaches Cardiovascular: No: Chest Pain or Discomfort Respiratory: No: Shortness of Breath Gastrointestinal: No: Abdominal Pain Genitourinary: No: Dysuria Musculoskeletal: No: Pain Skin: Positive Lesions, No Rash Neurologic: No: Weakness Psychiatric: No: Depression Endocrine: No: Polydipsia Hematologic/Lymphatic: No: Easy Bruising Physical Exam Narrative GENERAL: Patient appears in mild to moderate distress. SKIN: Warm and dry. Normal color. Normal turgor. Patient has a quarter sized raised tender warm area to the left medial wrist with lymphangitis and there edematous streak up to the elbow. There is pointing and a small amount of bloody purulent drainage from the abscess. HEAD: Atraumatic. Normocephalic. EYES: Pupils equal and round. No scleral icterus. No injection or drainage. ENT: No nasal bleeding or discharge. Mucous membranes pink and moist. Pharynx is clear. Airway is patent NECK: Trachea midline. Supple and nontender. CARDIOVASCULAR: Regular rate and rhythm. RESPIRATORY: No accessory muscle use. Clear to auscultation. Breath sounds equal bilaterally. MUSCULOSKELETAL: Extremities without clubbing, cyanosis, or edema. No obvious deformities. NEUROLOGICAL: Awake and alert. No obvious cranial nerve deficits. Motor grossly within normal limits. Five out of 5 muscle strength in the arms and legs. Normal speech. PSYCHIATRIC: Appropriate mood and affect; insight and judgment normal. Data Data Last Documented VS Vital Signs Date Time Temp Pulse Resp B/P (MAP) Pulse Ox O2 Delivery O2 Flow Rate FiO2 03/12/17 09:54 98.7 108 22 132/60 (84) 95 Room Air Orders Orders Lidocai-Epi 2%-1:100,000 Inj (Xylocaine- (03/12/17 10:15) Clindamycin Inj (Cleocin Inj) (03/12/17 10:15) Wound Culture And Gram Stain (03/12/17 10:40) [facility] Medical Decision Making Medical Screen Exam Complete: Yes Emergency Medical Condition: Yes Medical Record Reviewed: Yes Differential Diagnosis Cellulitis. Abscess. MRSA. Narrative Course Patient was given 600 mg clindamycin IM. I&D of abscesses performed. Cultures obtained and sent to the lab. Patient is placed on Keflex 500 mg 3 times daily 7 days as well as Bactrim DS twice daily 7 days. Wound instructions are reviewed. Patient referred to [facility] for further evaluation as needed. Patient does not need to return unless symptoms do not improve as discussed. Diagnosis Primary Impression: Abscess of wrist Referrals: [facility] Patient Instructions: Abscess Incision and Drainage (DC), General Instructions Additional Instructions: Patient was given 600 mg clindamycin IM. I&D of abscesses performed. Cultures obtained and sent to the lab. Patient is placed on Keflex 500 mg 3 times daily 7 days as well as Bactrim DS twice daily 7 days. Wound instructions are reviewed. Patient referred to [facility] for further evaluation as needed. Patient does not need to return unless symptoms do not improve as discussed. Med/Other Pt SpecificInfo: Prescription(s) given Scripts Cephalexin (Keflex) 500 Mg Cap 500 MG PO Q8H for Infection for 7 Days, #21 CAP 0 Refills Prov: Cynthia Ludwig MD 03/12/17 Sulfamethoxazole-Trimethoprim (Bactrim DS) 800-160 Mg Tab 1 TAB PO BID for Infection, #14 TAB 0 Refills Prov: Cynthia Ludwig MD 03/12/17 Ibuprofen (Ibuprofen) 800 Mg Tab 800 MG PO Q8H Y for Pain/Inflammation, #30 TAB 0 Refills Prov: Cynthia Ludwig MD 03/12/17 Disposition: 01 DISCHARGE HOME Condition: Stable John Hendrickson Mar 12, 2017 10:25
[2017-03-12] MEDS ORDERED: IBUP1TAB7 PO (10:39)
[2017-03-12] MEDS ORDERED: BACT800T5 PO (10:39)
[2017-03-12] MEDS ORDERED: CEPH-460 PO (10:39)
== END 2017-03-12 11:05 | disposition home or self-care (01) ==
LOC: NEPD 09:51
DX: L02.414 Cutaneous abscess of left upper limb (principal); B95.62 Methicillin resistant Staphylococcus aureus infection as the cause of diseases classified elsewhere; F31.9 Bipolar disorder, unspecified; F17.210 Nicotine dependence, cigarettes, uncomplicated; Z79.899 Other long term (current) drug therapy
CPT/HCPCS: 10060; 86403; 87070; 87186; 96372

== ENCOUNTER 2017-12-11 13:17 | Inpatient (IN) ==
[2017-12-11] MEDS ORDERED: Etomidate Inj 40 MG/20 ML Vial IV.PUSH ONE (13:21)
[2017-12-11] MEDS ORDERED: Propofol 1000 mg/100 ml Inj 1,000 MG/100 ML BOTTLE ONE (13:27)
--- NOTE | 2017-12-11 13:33 | ED ---
HPI General Chief Complaint: Altered Mental Status Stated Complaint: Emergent Time Seen by Provider: 12/11/17 13:27 Source: EMS and police Mode of arrival: EMS Limitations: altered mental status History of Present Illness HPI narrative: EMS attempted to intubate after providing ketamine etomidate and Versed however the patient was still clenching his teeth and they were unable to intubate, BVM ongoing, vitals present pulses present however the patient could not be intubated. Apparently this patient was acting bizarre, masturbating at a 711 and in the process of arrest and trying to subdue him he was given drugs mentioned above. MD complaint: Reports altered mental status Onset (ago): minute(s) (30) Timing confirmed by: other Severity: severe Consistency of symptoms: getting worse Context: Reports drug abuse Treatments prior to arrival: Reports IV fluid Related Data Home Medications Medication Instructions Recorded Confirmed Unable to Obtain Home Meds 12/11/17 12/11/17 Allergies Allergy/AdvReac Type Severity Reaction Status Date / Time No Allergy Information Allergy Unverified 12/11/17 13:29 Available Review of Systems ROS Unobtainable ROS Unobtainable: unobtainable due to mental status PMFSH History History Provided By: [employer]stand Attendant / EMT and Law Enforcement Medical History Medical History Medical history unknown (Acute) Surgical history unknown (Acute) Social History Social History Substance History: Unable to Obtain Smoking Status: Unknown if ever smoked How Often Do You Have a Drink Containing Alcohol: Unable to Obtain Recent Travel in [facility] within the Last 8 Weeks: No Recent Out of Country Travel within the Last 8 Weeks: No Exam Narrative Exam Narrative: GENERAL: -Danish male in respiratory distress. SKIN: Warm and dry. HEAD: Atraumatic. Normocephalic. EYES: Pupils 4mm bilaterally equal and round. No scleral icterus. No injection or drainage. ENT: No nasal bleeding or discharge. Mucous membranes pink and moist. NECK: Trachea midline. No JVD. CARDIOVASCULAR: Tachycardic rate with regular rhythm RESPIRATORY: Poor inspiratory effort, shallow tachypneic . Crackles bilaterally , tidal volume equal bilaterally. GASTROINTESTINAL: Abdomen soft, non-tender, nondistended. No rebound or guarding MUSCULOSKELETAL: Extremities without clubbing, cyanosis, or edema. No obvious deformities. NEUROLOGICAL: GCS of 3, poor inspiratory effort Course Initial Documented Vital Signs Pulse Rate 122 H 12/11/17 13:23 Respiratory Rate 20 12/11/17 13:23 Blood Pressure 182/77 H 12/11/17 13:23 Pulse Oximetry 98 12/11/17 13:23 Last Documented Vital Signs Temperature 99 F 12/11/17 14:20 Pulse Rate 99 H 12/11/17 15:00 Respiratory Rate 16 12/11/17 15:00 Blood Pressure 132/64 12/11/17 15:00 Pulse Oximetry 100 12/11/17 15:00 Procedures Intubation Time Out Performed: No Sedative: etomidate Mg Given: 20 Paralytic: succinylcholine Mg Given: 100 Laryngoscope: Harika Assist Device Used: Bougie ET Tube Size: 8 ET Tube Uncuffed: No Tube Secured Depth (cm): 24 Tube Secured Location: lips Tube Placement Confirmation: visualized tube passing through cords, equal breath sounds bilaterally, no breath sounds over epigastrium and confirmation by capnometry Patient Tolerated Procedure: no complications Intubation Complications: none Critical Care Time Critical Care Time: Yes Total Critical Care Time: 60 Attestation: Aggregate critical care time was 60 minutes. Time to perform other separately billable procedures was not included in the critical care time. My time did not include minutes spent treating any other patients simultaneously or on activities that did not directly contribute to the patient's treatment. The services I provided to this patient were to treat and/or prevent clinically significant deterioration I provided critical care services requiring my management, as noted below: Chart data review, documentation time, medication orders and management, vital sign assessments/reviewing monitor data, ordering and reviewing lab tests, ordering and interpreting/reviewing x-rays and diagnostic studies, care of the patient and discussion of the patient with the admitting physicians. Medical Decision Making MDM Narrative Medical decision making narrative: Lab evaluation/interpretation: CBC does not show any evidence of leukocytosis anemia or abnormal platelet count , additionally there is no evidence of any left shift. ABG performed status post intubation on 80% fio2 showed pao2 122, pco2 39 and ph 7.4......significant hypoxemia cxr read by radiologist as no acute abnormality, however clinically patient lung sounds bilateral crackles diffusely, in the presence of hypoxemia, are suspicious for noncardiogenic pulmonary edema Elect lites are within normal limits. Creatinine elevation 1.65, GFR decreased at 36, lactic acid elevation 11.5 LFTs elevated with an AST of 215, ALT of 102, ammonia of 37, total CPK of 6556 consistent with rhabdo TSH is normal Troponin is negative and CK-MB percent 0.5 Tox screen positive for benzodiazepines and cocaine, negative for alcohol negative salicylates Medical Screen Exam Complete: Yes Emergency Medical Condition: Yes Medical Records Medical records reviewed: Yes I reviewed the patient's medical records. Lab Data Lab results reviewed: Yes I reviewed the patient's lab results. Result diagrams: 12/11/17 14:00 12/11/17 14:00 Lab Results 12/11/17 12/11/17 12/11/17 Range/Units 13:50 13:50 14:00 WBC 11.0 (4.0-11.0) th/mm3 RBC 4.26 L (4.50-5.90) mil/mm3 Hgb 13.3 (13.0-17.0) gm/dL Hct 40.2 (39.0-51.0) % MCV 94.4 (80.0-100.0) fL MCH 31.2 (27.0-34.0) pg MCHC 33.0 (32.0-36.0) % RDW 13.4 (11.6-17.2) % Plt Count 263 (150-450) th/mm3 MPV 9.0 (7.0-11.0) fL Neut % (Auto) 51.9 (16.0-70.0) % Lymph % (Auto) 35.1 (9.0-44.0) % [place] % (Auto) 12.0 H (0.0-8.0) % Eos % (Auto) 0.7 (0.0-4.0) % Baso % (Auto) 0.3 (0.0-2.0) % Neut # (Auto) 5.7 (1.8-7.7) th/mm3 Lymph # (Auto) 3.8 (1.0-4.8) th/mm3 [place] # (Auto) 1.3 H (0.0-0.9) th/mm3 Eos # (Auto) 0.1 (0.0-0.4) th/mm3 Baso # (Auto) 0.0 (0.0-0.2) th/mm3 WBC Differential . Differential Comment Auto diff final Puncture Site Patient Temperature O2 Saturation (90-100) % ABG pH (7.380-7.420) ABG pCO2 (38-42) mmHg ABG pO2 (61-120) mmHg ABG HCO3 (22-26) mmol/L ABG O2 Content (12.0-20.0) Vol % ABG Base Excess (-2-2) mmol/L ABG Methemoglobin (0-2) % Marcus Test Hemoglobin (12.0-16.0) G/DL Carboxyhemoglobin (0-4) % O2 Delivery Device Vent Setting Inspired O2 % Critical Value Sodium (136-145) meq/L Potassium (3.5-5.1) meq/L Chloride (98-107) meq/L Carbon Dioxide (21.0-32.0) meq/L Anion Gap (5-15) meq/L BUN (7-18) mg/dL Creatinine (0.60-1.30) mg/dL Estimated GFR (>89) mL/min Random Glucose (74-106) mg/dL Lactic Acid (0.4-2.0) mmol/L Calcium (8.5-10.1) mg/dL Magnesium (1.5-2.5) mg/dL Total Bilirubin (0.2-1.0) mg/dL AST (15-37) U/L ALT (12-78) U/L Alkaline Phosphatase (45-117) U/L Ammonia (11-32) mcmol/L Total Creatine Kinase (39-308) U/L CK-MB (CK-2) (0.5-3.6) ng/mL CK-MB (CK-2) % (0.0-4.0) % Troponin I (0.02-0.05) ng/mL Total Protein (6.4-8.2) g/dL Albumin (3.4-5.0) g/dL TSH (0.358-3.740) uIU/mL Urine Color Yellow (Yellw/Straw) Urine Clarity Hazy H (Clear) Urine pH 5.0 (5.0-8.5) Ur Specific Gabriels 1.023 (1.002-1.035) Urine Protein 500 or greater (Neg-Trace) mg/dL Urine Glucose (UA) Negative (Negative) mg/dL Urine Ketones Negative (Negative) mg/dL Urine Occult Blood Moderate H (Negative) Urine Nitrate Negative (Negative) Urine Bilirubin Negative (Negative) Urine Urobilinogen Less than 2 (Less than 2) mg/dL Ur Leukocyte Esterase Negative (Negative) Urine RBC 2 (0-3) /hpf Urine WBC 3 (0-5) /hpf Ur Squamous Epith Cells <1 (0-5) /hpf Urine Bacteria Rare H (None) /hpf Hyaline Casts 4 (0-3) /lpf Urine Mucus Few H (Occasional) /lpf Micro UA Comment Cath-culture ind Ur Microscopic Review Not Reportable Urine Culture Comments Cath-cult indicated Salicylates (2.8-20.0) mg/dL Urine Opiates Screen Neg (Neg) Ur Barbiturates Screen Neg (Neg) Ur Amphetamines Screen Neg (Neg) U Benzodiazepines Scrn Pos H (Neg) Urine Cocaine Screen Pos H (Neg) U Cannabinoids Screen Neg (Neg) Serum Alcohol (0-5) mg/dL 12/11/17 12/11/17 12/11/17 Range/Units 14:00 14:00 14:00 WBC (4.0-11.0) th/mm3 RBC (4.50-5.90) mil/mm3 Hgb (13.0-17.0) gm/dL Hct (39.0-51.0) % MCV (80.0-100.0) fL MCH (27.0-34.0) pg MCHC (32.0-36.0) % RDW (11.6-17.2) % Plt Count (150-450) th/mm3 MPV (7.0-11.0) fL Neut % (Auto) (16.0-70.0) % Lymph % (Auto) (9.0-44.0) % [place] % (Auto) (0.0-8.0) % Eos % (Auto) (0.0-4.0) % Baso % (Auto) (0.0-2.0) % Neut # (Auto) (1.8-7.7) th/mm3 Lymph # (Auto) (1.0-4.8) th/mm3 [place] # (Auto) (0.0-0.9) th/mm3 Eos # (Auto) (0.0-0.4) th/mm3 Baso # (Auto) (0.0-0.2) th/mm3 WBC Differential Differential Comment Puncture Site Patient Temperature O2 Saturation (90-100) % ABG pH (7.380-7.420) ABG pCO2 (38-42) mmHg ABG pO2 (61-120) mmHg ABG HCO3 (22-26) mmol/L ABG O2 Content (12.0-20.0) Vol % ABG Base Excess (-2-2) mmol/L ABG Methemoglobin (0-2) % Marcus Test Hemoglobin (12.0-16.0) G/DL Carboxyhemoglobin (0-4) % O2 Delivery Device Vent Setting Inspired O2 % Critical Value Sodium 140 (136-145) meq/L Potassium 3.8 (3.5-5.1) meq/L Chloride 102 (98-107) meq/L Carbon Dioxide 23.5 (21.0-32.0) meq/L Anion Gap 15 (5-15) meq/L BUN 17 (7-18) mg/dL Creatinine 1.65 H (0.60-1.30) mg/dL Estimated GFR 36 L (>89) mL/min Random Glucose 163 H (74-106) mg/dL Lactic Acid (0.4-2.0) mmol/L Calcium 8.2 L (8.5-10.1) mg/dL Magnesium 2.6 H (1.5-2.5) mg/dL Total Bilirubin 0.5 (0.2-1.0) mg/dL AST 215 H (15-37) U/L ALT 102 H (12-78) U/L Alkaline Phosphatase 68 (45-117) U/L Ammonia 37 H (11-32) mcmol/L Total Creatine Kinase 6556 H (39-308) U/L CK-MB (CK-2) 31.9 H (0.5-3.6) ng/mL CK-MB (CK-2) % 0.5 (0.0-4.0) % Troponin I Less than 0.02 L (0.02-0.05) ng/mL Total Protein 7.9 (6.4-8.2) g/dL Albumin 4.3 (3.4-5.0) g/dL TSH 3.060 (0.358-3.740) uIU/mL Urine Color (Yellw/Straw) Urine Clarity (Clear) Urine pH (5.0-8.5) Ur Specific Gabriels (1.002-1.035) Urine Protein (Neg-Trace) mg/dL Urine Glucose (UA) (Negative) mg/dL Urine Ketones (Negative) mg/dL Urine Occult Blood (Negative) Urine Nitrate (Negative) Urine Bilirubin (Negative) Urine Urobilinogen (Less than 2) mg/dL Ur Leukocyte Esterase (Negative) Urine RBC (0-3) /hpf Urine WBC (0-5) /hpf Ur Squamous Epith Cells (0-5) /hpf Urine Bacteria (None) /hpf Hyaline Casts (0-3) /lpf Urine Mucus (Occasional) /lpf Micro UA Comment Ur Microscopic Review Urine Culture Comments Salicylates 2.7 L (2.8-20.0) mg/dL Urine Opiates Screen (Neg) Ur Barbiturates Screen (Neg) Ur Amphetamines Screen (Neg) U Benzodiazepines Scrn (Neg) Urine Cocaine Screen (Neg) U Cannabinoids Screen (Neg) Serum Alcohol 5 (0-5) mg/dL 12/11/17 12/11/17 Range/Units 14:00 14:22 WBC (4.0-11.0) th/mm3 RBC (4.50-5.90) mil/mm3 Hgb (13.0-17.0) gm/dL Hct (39.0-51.0) % MCV (80.0-100.0) fL MCH (27.0-34.0) pg MCHC (32.0-36.0) % RDW (11.6-17.2) % Plt Count (150-450) th/mm3 MPV (7.0-11.0) fL Neut % (Auto) (16.0-70.0) % Lymph % (Auto) (9.0-44.0) % [place] % (Auto) (0.0-8.0) % Eos % (Auto) (0.0-4.0) % Baso % (Auto) (0.0-2.0) % Neut # (Auto) (1.8-7.7) th/mm3 Lymph # (Auto) (1.0-4.8) th/mm3 [place] # (Auto) (0.0-0.9) th/mm3 Eos # (Auto) (0.0-0.4) th/mm3 Baso # (Auto) (0.0-0.2) th/mm3 WBC Differential Differential Comment Puncture Site Right radial Patient Temperature 98.6 O2 Saturation 93 (90-100) % ABG pH 7.40 (7.380-7.420) ABG pCO2 39 (38-42) mmHg ABG pO2 122 H (61-120) mmHg ABG HCO3 24 (22-26) mmol/L ABG O2 Content 16.7 (12.0-20.0) Vol % ABG Base Excess -0.6 (-2-2) mmol/L ABG Methemoglobin 0.8 (0-2) % Marcus Test Present Hemoglobin 12.6 (12.0-16.0) G/DL Carboxyhemoglobin 4.8 H (0-4) % O2 Delivery Device Ventilator Vent Setting Prvc/ac Inspired O2 80 % Critical Value No Sodium (136-145) meq/L Potassium (3.5-5.1) meq/L Chloride (98-107) meq/L Carbon Dioxide (21.0-32.0) meq/L Anion Gap (5-15) meq/L BUN (7-18) mg/dL Creatinine (0.60-1.30) mg/dL Estimated GFR (>89) mL/min Random Glucose (74-106) mg/dL Lactic Acid 11.5 H* (0.4-2.0) mmol/L Calcium (8.5-10.1) mg/dL Magnesium (1.5-2.5) mg/dL Total Bilirubin (0.2-1.0) mg/dL AST (15-37) U/L ALT (12-78) U/L Alkaline Phosphatase (45-117) U/L Ammonia (11-32) mcmol/L Total Creatine Kinase (39-308) U/L CK-MB (CK-2) (0.5-3.6) ng/mL CK-MB (CK-2) % (0.0-4.0) % Troponin I (0.02-0.05) ng/mL Total Protein (6.4-8.2) g/dL Albumin (3.4-5.0) g/dL TSH (0.358-3.740) uIU/mL Urine Color (Yellw/Straw) Urine Clarity (Clear) Urine pH (5.0-8.5) Ur Specific Gabriels (1.002-1.035) Urine Protein (Neg-Trace) mg/dL Urine Glucose (UA) (Negative) mg/dL Urine Ketones (Negative) mg/dL Urine Occult Blood (Negative) Urine Nitrate (Negative) Urine Bilirubin (Negative) Urine Urobilinogen (Less than 2) mg/dL Ur Leukocyte Esterase (Negative) Urine RBC (0-3) /hpf Urine WBC (0-5) /hpf Ur Squamous Epith Cells (0-5) /hpf Urine Bacteria (None) /hpf Hyaline Casts (0-3) /lpf Urine Mucus (Occasional) /lpf Micro UA Comment Ur Microscopic Review Urine Culture Comments Salicylates (2.8-20.0) mg/dL Urine Opiates Screen (Neg) Ur Barbiturates Screen (Neg) Ur Amphetamines Screen (Neg) U Benzodiazepines Scrn (Neg) Urine Cocaine Screen (Neg) U Cannabinoids Screen (Neg) Serum Alcohol (0-5) mg/dL Imaging Data Radiologist's impression: Chest X-Ray 12/11/17 13:33 CONCLUSION: No acute cardiopulmonary disease identified. ECG Data EKG Prior to Arrival: No Attestation: I personally reviewed and interpreted this ECG as follows: Prior ECG tracings: not available for review Interpretation: Sinus tachycardia, 125 bpm, normal intervals, no evidence of any acute ST elevation NV. Discharge Plan Discharge Disposition Patient Disposition: 30 Still Patient Discharge Condition Condition: Fair Discharge Details Diagnosis: Altered mental status, Required emergent intubation, Acute renal failure, Rhabdomyolysis Physicians Team ED Provider: Escobar Robles Rxs /Orders / Referrals /Forms Prescriptions: No Action Unable to Obtain Home Meds RF: 0 Discharge Interventions Interventions: Vital Signs Last Done: 12/11/17 15:00 Status ED Status: With Doctor
[2017-12-11] MEDS ORDERED: Succinylcholine Inj 100 MG/5 ML Syringe IV.PUSH ONE (13:35)
[2017-12-11] MEDS ORDERED: Sod Chloride 0.9% Inj 1,000 ML IV.SIG ONE (13:35)
[2017-12-11] MEDS ORDERED: Etomidate Inj 20 MG/10 ML Ampul IV.PUSH ONE (13:35)
[2017-12-11] MEDS ORDERED: Sod Chloride 0.9% Inj 1,000 ML IV.CONT SCH (13:45)
[2017-12-11] MEDS: Propofol 1000 mg/100 ml Inj 1,000 MG/100 ML BOTTLE IV.CONT PRN ×4 (13:46→22:39)
[2017-12-11 14:10] LABS: Baso % (Auto) 0.3 % (0.0-2.0); Eos # (Auto) 0.1 th/mm3 (0.0-0.4); Eos % (Auto) 0.7 % (0.0-4.0); Hematocrit 40.2 % (39.0-51.0); Hemoglobin 13.3 gm/dL (13.0-17.0); Lymph # (Auto) 3.8 th/mm3 (1.0-4.8); Lymph % (Auto) 35.1 % (9.0-44.0); Mean Corpuscular Hemoglobin 31.2 pg (27.0-34.0); Mean Corpuscular Volume 94.4 fL (80.0-100.0); Mono # (Auto) 1.3 th/mm3 (0.0-0.9); Neut # (Auto) 5.7 th/mm3 (1.8-7.7); Neut % (Auto) 51.9 % (16.0-70.0); Platelet Count 263 th/mm3 (150-450); Red Blood Count 4.26 mil/mm3 (4.50-5.90); Red Cell Distribution Width 13.4 % (11.6-17.2)
--- NOTE | 2017-12-11 14:16 | XR ---
EXAM DATE: 12/11/2017 2:11 PM EDT AGE/SEX: 89 years / Male INDICATIONS: Intubation. Altered mental status. CLINICAL DATA: This is the patient's initial encounter. Patient reports that signs and symptoms have been present for 1 day and indicates a pain score of Nonresponsive. MEDICAL/SURGICAL HISTORY: Non-responsive. Non-responsive. COMPARISON: No prior exams available for comparison. FINDINGS: Single AP view the chest. Endotracheal tube is in place with the tip 5 cm above the yinka. Nasogastr ic tube is in place with the tip below the [id number] of the radiograph. Lungs are clear. Cardiome diastinal silhouette within normal limits. No evidence of pleural effusion or pneumothorax. CONCLUSION: No acute cardiopulmonary disease identified. Electronically signed by: Kuldeep Perea MD 12/11/2017 2:14 PM EDT
[2017-12-11 14:22] LABS: Bacteria,Urine Rare /hpf; Bilirubin,Urine Negative (Negative); Clarity,Urine Hazy (Clear); Color,Urine Yellow (Yellw/Straw); Glucose,Urine (UA) Negative (Negative); Hyaline Casts,Urine 4 /lpf (0-3); Leukocyte Esterase,Urine Negative (Negative); Mucus,Urine Few /lpf (Occasional); Nitrite,Urine Negative (Negative); Specific Gravity,Urine 1.023 (1.002-1.035); Squamous Epithelial Cell,Urine <1 /hpf (0-5)
[2017-12-11 14:23] LABS: Amphetamine Screen,Urine Neg (Neg); Barbiturate Screen,Urine Neg (Neg); Cannabinoid Screen,Urine Neg (Neg); Cocaine Screen,Urine Pos (Neg)
[2017-12-11 14:31] LABS: ABG Base Excess -0.6 mmol/L (-2-2); ABG PCO2 39 mmHg (38-42); ABG PO2 122 mmHg (61-120)
[2017-12-11 14:32] LABS: Alanine Aminotransferase 102 U/L (12-78); Albumin 4.3 g/dL (3.4-5.0); Anion Gap 15 meq/L (5-15); Aspartate Aminotransferase 215 U/L (15-37); Blood Urea Nitrogen 17 mg/dL (7-18); Calcium 8.2 mg/dL (8.5-10.1); Carbon Dioxide 23.5 meq/L (21.0-32.0); Chloride 102 meq/L (98-107); Glomerular Filtration Rate 36 mL/min (>89); Glucose,Random 163 mg/dL (74-106); Magnesium 2.6 mg/dL (1.5-2.5); Potassium 3.8 meq/L (3.5-5.1); Sodium 140 meq/L (136-145)
[2017-12-11 14:32] LABS: Opiate Screen,Urine Neg (Neg)
[2017-12-11 14:40] LABS: Alcohol 5 mg/dL (0-5)
[2017-12-11 14:59] LABS: Alkaline Phosphatase 68 U/L (45-117); Creatine Kinase 6556 U/L (39-308); Total Protein 7.9 g/dL (6.4-8.2)
[2017-12-11] MEDS: Sod Chloride 0.9% Inj 1,000 ML IV.SIG SCH ×2 (15:00→15:50)
[2017-12-11 15:11] LABS: CKMB Percent 0.5 % (0.0-4.0); Creatine Kinase MB 31.9 ng/mL (0.5-3.6)
[2017-12-11] MEDS ORDERED: Midazolam Inj 5 MG/ML 1 ML Vial ONE (16:00)
[2017-12-11] MEDS ORDERED: Midazolam 50 MG/50 ML Inj 50 MG/50 ML BAG IV.CONT ONE (16:00)
[2017-12-11] MEDS ORDERED: Potassium Chloride 25 MEQ Effervescent Tablet PO PRN (16:01)
[2017-12-11] MEDS ORDERED: Potassium Phosphate Inj 30 MMOL in Sodium Chlor 0.9% Inj 250 ML IV.SIG PRN (16:01)
[2017-12-11] MEDS ORDERED: Magnesium Oxide 400 MG Tablet PO PRN (16:01)
[2017-12-11] MEDS ORDERED: Labetalol HCl Inj 100 MG/20 ML Vial IV.PUSH PRN (16:01)
[2017-12-11] MEDS ORDERED: Potassium Phosphate 500 MG Soluble Tablet PO PRN ×2 (16:01)
[2017-12-11] MEDS ORDERED: Magnesium Sulfate Inj 4 GM in Sodium Chlor 0.9% Inj 92 ML IV.SIG PRN (16:01)
[2017-12-11] MEDS ORDERED: Potassium Chlor 20 mEq Premix 20 MEQ/100 ML PIGGYBACK IV.SIG PRN ×2 (16:01)
[2017-12-11] MEDS ORDERED: hydrALAZINE HCl Inj 20 MG/ML Vial IV.PUSH PRN (16:01)
[2017-12-11] MEDS ORDERED: Bisacodyl 10 MG Supp RECTAL PRN (16:01)
[2017-12-11] MEDS ORDERED: fentaNYL 10 mcg/mL Premix Drip 2,500 MCG/250 ML BAG IV.SIG PRN (16:01)
[2017-12-11] MEDS ORDERED: Magnesium Sulfate Inj 2 GM in Sodium Chlor 0.9% Inj 96 ML IV.SIG PRN (16:01)
[2017-12-11] MEDS ORDERED: Dextrose 50% in Water 50 ML Vial IV.PUSH PRN (16:01)
[2017-12-11] MEDS ORDERED: Sodium Phosphate Inj 30 MMOL in Sodium Chlor 0.9% Inj 250 ML IV.SIG PRN (16:01)
[2017-12-11] MEDS ORDERED: Potassium Chlor 40 mEq Premix 40 MEQ/100 ML PIGGYBACK IV.SIG PRN ×2 (16:01)
[2017-12-11] MEDS: Midazolam 50 MG/50 ML Inj 50 MG/50 ML BAG IV.CONT PRN ×2 (16:04→22:38)
--- NOTE | 2017-12-11 16:27 | CT ---
EXAM DATE: 12/11/2017 4:20 PM EDT AGE/SEX: 89 years / Male INDICATIONS: Altered mental status. CLINICAL DATA: This is the patient's initial encounter. Patient reports that signs and symptoms have been present for 1 day and indicates a pain score of Nonresponsive. MEDICAL/SURGICAL HISTORY: Non-responsive. Non-responsive. RADIATION DOSE: 56.35 CTDI (mGy) COMPARISON: . TECHNIQUE: CT of the head without contrast. Using automated exposure control and adjustment of the mA and/or kV according to patient size, radiation dose was kept as low as reasonably achievable to ob tain optimal diagnostic quality images. DICOM format image data is available electronically for revi ew and comparison. FINDINGS: Cerebrum: The ventricles are normal for age. No evidence of midline shift, mass lesion, hemorrhage or acute infarction. No extraaxial fluid collections are seen. Posterior Fossa: The cerebellum and brainstem are intact. The 4th ventricle is midline. The cerebe llopontine angle is unremarkable. Extracranial: Moderate severity partial opacification of the ethmoid sinuses. Small air-fluid level in the right maxillary sinus. Skull: The calvaria is intact. No evidence of skull fracture. CONCLUSION: 1. Bilateral ethmoid sinus disease and right-sided maxillary sinus disease. 2. No acute intracranial findings. . Electronically signed by: Kuldeep Perea MD 12/11/2017 4:25 PM EDT
[2017-12-11 16:59] LABS: Amphetamine Urine With Conf Neg (Neg)
[2017-12-11] MEDS ORDERED: RASS Change Order OTHER ONE (17:00)
[2017-12-11] MEDS: Enoxaparin Inj 40 MG/0.4 ML Syringe SQ SCH (17:01)
[2017-12-11 17:04] LABS: Benzodiazepine Urine With Conf Pos (Neg)
[2017-12-11 17:49] LABS: CKMB Percent 0.3 % (0.0-4.0); Creatine Kinase MB 23.4 ng/mL (0.5-3.6)
[2017-12-11] MEDS: Insulin NovoLIN Regular Correctional Sugar Inj SQ SCH (18:36)
[2017-12-11] MEDS: Multivitamin Inj 10 ML, Thiamine Inj 100 MG, Folic Acid Inj 1 MG in Sodium Chlor 0.9% I... IV.SIG SCH (18:36)
--- NOTE | 2017-12-11 19:15 | P.HPCC ---
History of Present Illness Service: Critical Care Medicine Primary Care Physician: UNKNOWN History of Present Illness: Middle-age male who was found acting erratically at 711. He was being aggressive. He was sedated with ketamine IV and then became unresponsive and apneic. The EMS was unable to intubate the patient. He was intubated upon arrival to the emergency department. No additional information is available from the patient. Patient has an elevated CK level suggestive of rhabdomyolysis and a severely elevated lactate with a normal pH which could suggest seizure activity. Patient's urine drug screen is positive for cocaine. No additional information is available from the patient. Review systems is unobtainable. Inpatient Certification: I certify that the inpatient services were ordered in accordance with Medicare regulations governing the order. This includes certification that hospital inpatient services are reasonable and necessary and in the case of services not specified as inpatient-only under 42 CFR 419.22(n), that they are appropriately provided as inpatient services in accordance to with the 2-midnight benchmark under 43 CFR 412.3(e) Estimated Total Length of Stay (Days): 7 Plans for Post Hospital Care: Not yet determined Review of Systems unobtainable due to endotracheal tube, unobtainable due to mental condition, unobtainable due to mental status PMFSH - History History Provided By: Medical Record, Through Freight Engineer / EMT, Law Enforcement - Medical / Surgical Hx Neg / Unobtainable Medical Problems Denied: Unable to Obtain Surgical History: Unable to Obtain - Medical History Medical History: Medical History (Last Reviewed 12/11/17 @ 13:30 by Escobar Robles) Medical history unknown Surgical history unknown - Tobacco History Smoking Status: Unknown if ever smoked - Alcohol History How Often Do You Have a Drink Containing Alcohol: Unable to Obtain - Substance Use History Substance History: Unable to Obtain - Travel History Recent Travel in the [place] Within the Last 8 Weeks: No Recent Travel Out of the Country Within the Last 8 Weeks: No - Immunization History Tetanus Immunization: Unable to Assess Medications and Allergies Active Medications: Active Medications Albuterol (Duoneb Neb (Dayana)) 1 ampul NEB Q6HR NEB DAYANA Albuterol (Duoneb Neb (Prn)) 1 ampul NEB Q2HR NEB PRN PRN Reason: WHEEZING Bisacodyl (Dulcolax Supp) 10 mg RECTAL DAILY PRN PRN Reason: if no BM in last 24h Chlorhexidine Gluconate (Chlorhexidine 2% Cloth) 3 pack TOPICAL DAILY@0400 [facility] Stop: 12/17/17 03:59 Chlorhexidine Gluconate (Chlorhexidine 2% Cloth) 3 pack TOPICAL DAILY@0400 PRN PRN Reason: Extra cloth needed Stop: 12/17/17 03:59 Clonidine HCl (Catapres) 0.2 mg PO Q8HR [facility] Dextrose (D50w Vial) 50 ml IV.PUSH UNSCH PRN PRN Reason: PER HYPOGLYCEMIA PROTOCOL Enoxaparin Sodium (Lovenox Inj) 40 mg SQ Q24H [facility] Last Admin: 12/11/17 17:01 Dose: 40 mg Famotidine (Pepcid Pf Inj) 20 mg IV.PUSH Q12HR [facility] Folic Acid (Folic Acid) 1 mg PO DAILY [facility] Stop: 12/15/17 09:01 Glucagon (Glucagon Inj) 1 mg OTHER UNSCH PRN PRN Reason: for Hypoglycemia Protocol Hydralazine HCl (Apresoline Inj) 10 mg IV.PUSH Q30M PRN PRN Reason: sbp > 160, dbp > 95 Propofol (Diprivan 1000 Mg/100 Ml Inj) 1,000 mg in 100 mls @ 2.994 mls/hr IV.CONT TITRATE PRN; Protocol PRN Reason: Per Protocol Last Titration: 12/11/17 18:52 Dose: 25 mcg/kg/min, 14.97 mls/hr Midazolam HCl (Versed Inj) 50 mg in 50 mls @ 2 mls/hr IV.CONT TITRATE PRN; Protocol PRN Reason: Per Protocol Last Titration: 12/11/17 18:52 Dose: 4 mg/hr, 4 mls/hr Fentanyl (Fentanyl 10 Mcg/Ml Premix Drip) 2,500 mcg in 250 mls @ 5 mls/hr IV.SIG TITRATE PRN; Protocol PRN Reason: Per Protocol Lactated Ringer's (Lr 1000 Ml Inj) 1,000 mls @ 200 mls/hr IV.CONT .Q5H [facility] Last Admin: 12/11/17 16:59 Dose: 200 mls/hr Magnesium Sulfate 4 gm/ Sodium (Chloride) 100 mls @ 50 mls/hr IV.SIG UNSCH PRN PRN Reason: For Magnesium 0.9 - 1.1 mg/dL Magnesium Sulfate 2 gm/ Sodium (Chloride) 100 mls @ 50 mls/hr IV.SIG UNSCH PRN PRN Reason: For Magnesium 1.2 - 1.6 mg/dL Potassium Chloride (Kcl 40 Meq Premix Inj) 40 meq in 100 mls @ 50 mls/hr IV.SIG Q2H PRN PRN Reason: For Potassium 2.8 - 3.2 mEq/L Potassium Chloride (Kcl 20 Meq Premix Inj) 20 meq in 100 mls @ 50 mls/hr IV.SIG Q2H PRN PRN Reason: For Potassium 3.3 - 3.5 mEq/L Potassium Chloride (Kcl 40 Meq Premix Inj) 40 meq in 100 mls @ 25 mls/hr IV.SIG UNSCH PRN PRN Reason: For Potassium 3.3 - 3.5 mEq/L Potassium Chloride (Kcl 20 Meq Premix Inj) 20 meq in 100 mls @ 50 mls/hr IV.SIG Q2H PRN PRN Reason: For Potassium 2.8 - 3.2 mEq/L Potassium Phosphate 30 mmol/ (Sodium Chloride) 260 mls @ 42 mls/hr IV.SIG UNSCH PRN PRN Reason: SEE LABEL COMMENTS Sodium Phosphate 30 mmol/ (Sodium Chloride) 260 mls @ 42 mls/hr IV.SIG UNSCH PRN PRN Reason: For Phosphorus < 2.5 mg/dL Multivitamins 10 ml/ Thiamine HCl 100 mg/ Folic Acid 1 mg/Sodium Chloride 511.2 mls @ 125 mls/hr IV.SIG Q24H [facility] Stop: 12/12/17 22:06 Last Admin: 12/11/17 18:36 Dose: 125 mls/hr Insulin Human Regular (Novolin R Correctional Sugar Inj) 0 units SQ Q6HR DAYANA; Protocol Last Admin: 12/11/17 18:36 Dose: Not Given Labetalol HCl (Trandate Inj) 10 mg IV.PUSH Q20M PRN PRN Reason: sbp > 160 or DBP > 95 Lactulose (Lactulose Liq) 30 ml PO BID DAYANA Magnesium Oxide (Mag-Ox) 800 mg PO UNSCH PRN PRN Reason: For Magnesium 1.2 - 1.6 mg/dL Ondansetron HCl (Zofran Inj) 4 mg IV.PUSH Q6H PRN PRN Reason: NAUSEA OR VOMITING Polyethylene Glycol (Miralax) 17 gm PO BID DAYANA Potassium Bicarb/Potassium Chloride (K-Lyte Cl Eff) 50 meq PO UNSCH PRN PRN Reason: For Potassium 3.3 - 3.5 mEq/L Potassium Phosphate (K-Phos Original) 2,000 mg PO Q4H PRN PRN Reason: Phosphorus Less Than 2.5 mg/dL Potassium Phosphate (K-Phos Original) 2,000 mg PO UNSCH PRN PRN Reason: SEE LABEL COMMENTS Senna/Docusate Sodium (Brittny-Colace) 1 tab PO BID DAYANA Sodium Chloride (Ns Flush) 2 ml IV.FLUSH UNSCH PRN PRN Reason: FLUSH AFTER USING IV ACCESS Thiamine HCl (Vitamin B1) 100 mg PO DAILY [facility] Stop: 12/15/17 09:01 Allergies Allergy/AdvReac Type Severity Reaction Status Date / Time No Allergy Information Allergy Unverified 12/11/17 13:29 Available Home Medications Medication Instructions Recorded Confirmed Type Unable to Obtain Home Meds 12/11/17 12/11/17 History Results - Labs CBC & Chem 7: 12/12/17 03:55 12/12/17 03:55 Labs: Short CBC 12/11/17 Range/Units 14:00 WBC 11.0 (4.0-11.0) th/mm3 Hgb 13.3 (13.0-17.0) gm/dL Hct 40.2 (39.0-51.0) % Plt Count 263 (150-450) th/mm3 BMP 12/11/17 14:00 Sodium 140 Potassium 3.8 Chloride 102 Carbon Dioxide 23.5 BUN 17 Creatinine 1.65 H Calcium 8.2 L Cardiac Enzymes 12/11/17 12/11/17 Range/Units 14:00 16:05 Total Creatine Kinase 6556 H 6940 H (39-308) U/L CK-MB (CK-2) 31.9 H 23.4 H (0.5-3.6) ng/mL Troponin I Less than 0.02 L (0.02-0.05) ng/mL Liver Function 12/11/17 Range/Units 14:00 Total Bilirubin 0.5 (0.2-1.0) mg/dL AST 215 H (15-37) U/L ALT 102 H (12-78) U/L Alkaline Phosphatase 68 (45-117) U/L Albumin 4.3 (3.4-5.0) g/dL Urine 12/11/17 Range/Units 13:50 Urine Color Yellow (Yellw/Straw) Urine Clarity Hazy H (Clear) Urine pH 5.0 (5.0-8.5) Ur Specific [place] 1.023 (1.002-1.035) Urine Protein 500 or greater (Neg-Trace) mg/dL Urine Glucose (UA) Negative (Negative) mg/dL - Imaging Impressions Chest X-Ray 12/11/17 13:33 CONCLUSION: No acute cardiopulmonary disease identified. Head CT 12/11/17 13:33 CONCLUSION: 1. Bilateral ethmoid sinus disease and right-sided maxillary sinus disease. 2. No acute intracranial findings. . Exam Vital signs: Vital Signs 12/11/17 13:23 12/11/17 13:33 12/11/17 13:37 Temperature Pulse Rate 122 H 123 H Respiratory Rate 20 14 Blood Pressure 182/77 H 187/83 H Pulse Oximetry 98 97 12/11/17 13:41 12/11/17 14:06 12/11/17 14:20 Temperature 37.2 C Pulse Rate 122 H 109 H 109 H Respiratory Rate 18 18 Blood Pressure 153/80 H 122/53 L Pulse Oximetry 97 92 L 97 12/11/17 15:00 12/11/17 16:00 12/11/17 16:23 Temperature Pulse Rate 99 H 98 H Respiratory Rate 16 18 Blood Pressure 132/64 111/62 Pulse Oximetry 100 98 100 12/11/17 16:42 12/11/17 17:31 12/11/17 17:37 Temperature Pulse Rate 92 H Respiratory Rate 16 Blood Pressure 118/62 149/102 H Pulse Oximetry 100 100 12/11/17 17:38 12/11/17 17:45 12/11/17 17:50 Temperature 37.4 C 37.3 C Pulse Rate 92 H 92 H 91 H Respiratory Rate 19 20 19 Blood Pressure 151/79 H Pulse Oximetry 100 12/11/17 18:00 12/11/17 18:15 12/11/17 18:19 Temperature 37.5 C 37.4 C Pulse Rate 91 H 94 H Respiratory Rate 23 21 16 Blood Pressure 161/82 H 163/85 H Pulse Oximetry 100 100 100 Intake & Output 12/11/17 12/11/17 12/12/17 06:59 18:59 05:59 Intake Total 3450 / 3450 Output Total 800 / 800 Balance 2650 / 2650 Weight 99.79 kg Intake: IV 3450 / 3450 Diprivan 1000 mg/100 ml Inj 1, 200 / 200 000 mg In 100 ml @ 5 MCG/KG/MIN 2.994 mls/hr IV.CONT TITRATE PRN Rx#:[id number] NS Inj 1,000 ML @ 125 mls/hr IV 250 / 250 .CONT .Q8H [facility] Rx#:[id number] NS Inj 1,000 ML @ 2000 mls/hr 3000 / 3000 IV.SIG Q30M [facility] Rx#:[id number] Output: Urine Amount (Catheter) 675 / 675 Indwelling Urethral Catheter 675 / 675 Gastric Drainage 125 / 125 Orogastric Tube 125 / 125 Narrative: GENERAL: Middle-age appearing male, lying in bed, intubated, sedated HEENT: Normocephalic. Atraumatic. Pupils 3 mm, equal, round, reactive, conjugate. Mucous membranes are moist NECK: Trachea is midline. There is no JVD. CHEST: Equal chest rise. PRVC mode of ventilation. PEEP of 5. FiO2 50%. CARDIOVASCULAR: Normal rate, regular rhythm. Sinus. ABDOMEN: Soft, nontender, nondistended. No guarding. MUSCULOSKELETAL: Pulses 2+. No peripheral edema. NEUROLOGICAL: RASS -5. Recently intubated and sedated. Paralyzed for intubation. Septic Shock Reassessment Septic shock perfusion: reassessment completed Caprini VTE Risk Assessment Caprini VTE Risk Assessment: Moderate/High Risk (score >= 2) Caprini Risk Assessment Model: Point Value = 1 Point Value = 2 Point Value = 3 Point Value = 5 Age 41-60 Minor surgery BMI > 25 kg/m2 Swollen legs Varicose veins or History of unexplained or recurrent spontaneous Oral contraceptives or hormone replacement Sepsis (< 1 month) Serious lung disease, including pneumonia (< 1 month) Abnormal pulmonary function Acute myocardial infarction Congestive heart failure (< 1 month) History of inflammatory bowel disease Medical patient at bed rest Age 61-74 Arthroscopic surgery Major open surgery (> 45 min) Laparoscopic surgery (> 45 min) Malignancy Confined to bed (> 72 hours) Immobilizing plaster cast Central venous access Age >= 75 History of VTE Family history of VTE Factor V Leiden Prothrombin [id number] Lupus anticoagulant Anticardiolipin antibodies Elevated serum homocysteine Heparin-induced thrombocytopenia Other congenital or acquired thrombophilia Stroke (< 1 month) Elective arthroplasty Hip, pelvis, or leg fracture Acute spinal cord injury (< 1 month) Prophylaxis Regimen: Total Risk Factor Score Risk Level Prophylaxis Regimen 0-1 Low Early ambulation 2 Moderate Order ONE of the following: *Sequential Compression Device (SCD) *Heparin 5000 units SQ BID 3-4 Higher Order ONE of the following medications: *Heparin 5000 units SQ TID *Enoxaparin/Lovenox 40 mg SQ daily (WT < 150 kg, CrCl > 30 mL/min) *Enoxaparin/Lovenox 30 mg SQ daily (WT < 150 kg, CrCl > 10-29 mL/min) *Enoxaparin/Lovenox 30 mg SQ BID (WT < 150 kg, CrCl > 30 mL/min) AND/OR *Sequential Compression Device (SCD) 5 or more Highest Order ONE of the following medications: *Heparin 5000 units SQ TID (Preferred with Epidurals) *Enoxaparin/Lovenox 40 mg SQ daily (WT < 150 kg, CrCl > 30 mL/min) *Enoxaparin/Lovenox 30 mg SQ daily (WT < 150 kg, CrCl > 10-29 mL/min) *Enoxaparin/Lovenox 30 mg SQ BID (WT < 150 kg, CrCl > 30 mL/min) AND *Sequential Compression Device (SCD) Assessment and Plan - Assessment and Plan Plan: Assessment: Middle-age male now unresponsive with toxic encephalopathy. Very critically ill. Admit ICU. Frequent neurochecks. Plan by systems: Neurologic: Acute toxic encephalopathy Cocaine abuse Propofol and fentanyl for goal RASS -2 Avoid long-acting sedatives Frequent neurochecks IV thiamine multivitamin Respiratory: Acute hypoxic and hypercarbic respiratory failure Vent bundle Head of bed elevated Wean FiO2 for goal SPO2 greater than 90% No weaning of mechanical ventilation until mental status improves Cardiovascular: Sinus tachycardia Likely secondary to intoxication IV fluids Renal: Acute kidney injury Acute rhabdomyolysis Secondary to dehydration Maintenance IV fluids Trend creatinine Close urine output monitoring Trend CKs -- Strict I/Os FEN/GI: N.p.o. Orogastric tube to low intermittent wall suction ICU electrolyte protocol Serial BMP, magnesium, phosphorus Heme/ID: No infectious etiology suspected this time Daily CBC Endocrine: -- SSI Prophylaxis: GI Prophylaxis Pepcid DVT Prophylaxis -- SCDs Lovenox Lines: Peripheral IVs Dispo: Admit ICU. Critically ill. This patient remains critically ill with one or more organ systems which are or may become a threat to life. I have spent in excess of 39 minutes discontinuously in the care and management of this patient. This time is exclusive of procedures, and includes, but is not limited to, evaluation of the patient, review of the medical record, discussions with family, consultants, nursing staff, or respiratory therapy, and documentation in the medical record.
[2017-12-11] MEDS: Famotidine PF Inj 20 MG/2 ML Vial IV.PUSH SCH (20:02)
[2017-12-11] MEDS: Polyethylene Glycol 3350 17 GM Packet PO SCH (20:03)
[2017-12-11] MEDS: Senna/Docusate Sodium 8.6/50 MG Tablet PO SCH (20:03)
[2017-12-12] MEDS: Insulin NovoLIN Regular Correctional Sugar Inj SQ SCH ×4 (00:01→17:34)
[2017-12-12 00:30] LABS: CKMB Percent 0.3 % (0.0-4.0); Creatine Kinase MB 17.8 ng/mL (0.5-3.6)
[2017-12-12] MEDS: Propofol 1000 mg/100 ml Inj 1,000 MG/100 ML BOTTLE IV.CONT PRN ×2 (01:50→06:08)
[2017-12-12] MEDS: Chlorhexidine Gluconate 2% 1 Pack (2 Cloths) TOPICAL SCH (03:15)
[2017-12-12] MEDS ORDERED: Chlorhexidine Gluconate 2% 1 Pack (2 Cloths) TOPICAL PRN (04:00)
[2017-12-12 04:18] LABS: Baso # (Auto) 0.1 th/mm3 (0.0-0.2); Baso % (Auto) 0.8 % (0.0-2.0); Eos # (Auto) 0.1 th/mm3 (0.0-0.4); Hematocrit 37.6 % (39.0-51.0); Hemoglobin 12.5 gm/dL (13.0-17.0); Lymph # (Auto) 2.1 th/mm3 (1.0-4.8); Mean Corpuscular HGB Conc 33.3 % (32.0-36.0); Mean Corpuscular Hemoglobin 30.6 pg (27.0-34.0); Mean Corpuscular Volume 91.9 fL (80.0-100.0); Mean Platelet Volume 8.8 fL (7.0-11.0); Mono % (Auto) 9.9 % (0.0-8.0); Neut # (Auto) 6.6 th/mm3 (1.8-7.7); Neut % (Auto) 67.3 % (16.0-70.0); Platelet Count 231 th/mm3 (150-450); Red Blood Count 4.09 mil/mm3 (4.50-5.90); White Blood Count 9.8 th/mm3 (4.0-11.0)
[2017-12-12 05:00] LABS: Alanine Aminotransferase 94 U/L (12-78); Albumin 3.6 g/dL (3.4-5.0); Alkaline Phosphatase 61 U/L (45-117); Anion Gap 5 meq/L (5-15); Aspartate Aminotransferase 149 U/L (15-37); Blood Urea Nitrogen 10 mg/dL (7-18); Calcium 7.6 mg/dL (8.5-10.1); Carbon Dioxide 30.2 meq/L (21.0-32.0); Chloride 107 meq/L (98-107); Creatine Kinase 5964 U/L (39-308); Glomerular Filtration Rate 48 mL/min (>89); Glucose,Random 87 mg/dL (74-106); Magnesium 2.6 mg/dL (1.5-2.5); Phosphorus 4.2 mg/dL (2.5-4.9); Potassium 3.8 meq/L (3.5-5.1); Sodium 142 meq/L (136-145); Total Protein 6.8 g/dL (6.4-8.2)
[2017-12-12] MEDS: Midazolam 50 MG/50 ML Inj 50 MG/50 ML BAG IV.CONT PRN (05:16)
[2017-12-12 05:20] LABS: CKMB Percent 0.2 % (0.0-4.0); Creatine Kinase MB 11.8 ng/mL (0.5-3.6)
[2017-12-12 05:26] LABS: ABG Base Excess 2.7 mmol/L (-2-2); ABG PCO2 46 mmHg (38-42); ABG PO2 117 mmHg (61-120)
[2017-12-12] MEDS: Senna/Docusate Sodium 8.6/50 MG Tablet PO SCH ×2 (08:11→20:50)
[2017-12-12] MEDS: Polyethylene Glycol 3350 17 GM Packet PO SCH ×2 (08:11→20:50)
[2017-12-12] MEDS: Famotidine PF Inj 20 MG/2 ML Vial IV.PUSH SCH (08:11)
[2017-12-12 14:04] LABS: CKMB Percent 0.1 % (0.0-4.0); Creatine Kinase MB 7.2 ng/mL (0.5-3.6)
[2017-12-12] MEDS ORDERED: Sodium Chloride 0.9% 2 ML Flush PRN IV.FLUSH (15:26)
[2017-12-12 17:26] LABS: CKMB Percent 0.1 % (0.0-4.0); Creatine Kinase MB 4.4 ng/mL (0.5-3.6)
[2017-12-12] MEDS: Multivitamin Inj 10 ML, Thiamine Inj 100 MG, Folic Acid Inj 1 MG in Sodium Chlor 0.9% I... IV.SIG SCH (17:33)
[2017-12-12] MEDS: Enoxaparin Inj 40 MG/0.4 ML Syringe SQ SCH (17:34)
--- NOTE | 2017-12-12 19:46 | P.PNCC ---
Subjective Subjective Remarks/Hospital Course: Hospital Course: Middle-age male who was found acting erratically at 711. He was being aggressive. He was sedated with ketamine IV and then became unresponsive and apneic. The EMS was unable to intubate the patient. He was intubated upon arrival to the emergency department. No additional information is available from the patient. Patient has an elevated CK level suggestive of rhabdomyolysis and a severely elevated lactate with a normal pH which could suggest seizure activity. Patient's urine drug screen is positive for cocaine. No additional information is available from the patient. Review systems is unobtainable. Subjective: 12/12: extubated. doing well. denies complaints. CK downtrending appropriately. adequate uop. Objective Vital Signs / I&O: Vital Signs 12/11/17 20:45 12/11/17 20:46 12/11/17 20:56 Temperature 37.3 C Pulse Rate 89 88 Respiratory Rate 14 14 14 Blood Pressure Pulse Oximetry 100 100 12/11/17 21:00 12/11/17 21:01 12/11/17 21:15 Temperature 37.2 C 37.1 C 37.0 C Pulse Rate 89 90 90 Respiratory Rate 15 14 14 Blood Pressure 141/64 H Pulse Oximetry 100 100 100 12/11/17 21:30 12/11/17 21:31 12/11/17 21:45 Temperature 36.8 C 36.8 C 36.8 C Pulse Rate 90 90 88 Respiratory Rate 15 15 15 Blood Pressure 139/60 Pulse Oximetry 100 100 100 12/11/17 22:00 12/11/17 22:01 12/11/17 22:15 Temperature 36.9 C 36.9 C 37.5 C Pulse Rate 88 95 H 90 Respiratory Rate 22 22 16 Blood Pressure Pulse Oximetry 100 100 100 12/11/17 22:30 12/11/17 22:31 12/11/17 22:45 Temperature 37.6 C H 37.6 C H 37.5 C Pulse Rate 88 88 87 Respiratory Rate 14 14 15 Blood Pressure 154/83 H Pulse Oximetry 100 100 100 12/11/17 23:00 12/11/17 23:01 12/11/17 23:15 Temperature 37.4 C 37.4 C 37.5 C Pulse Rate 89 91 H 89 Respiratory Rate 14 14 15 Blood Pressure 151/82 H Pulse Oximetry 100 100 100 12/11/17 23:30 12/11/17 23:31 12/11/17 23:45 Temperature 37.5 C 37.5 C 37.6 C H Pulse Rate 88 91 H 88 Respiratory Rate 15 15 14 Blood Pressure Pulse Oximetry 100 100 100 12/12/17 00:00 12/12/17 00:02 12/12/17 00:15 Temperature 37.4 C 37.4 C Pulse Rate 90 89 Respiratory Rate 14 14 14 Blood Pressure 144/77 H Pulse Oximetry 100 100 100 12/12/17 00:30 12/12/17 00:45 12/12/17 01:00 EST Temperature 37.4 C 37.5 C 37.6 C H Pulse Rate 89 88 89 Respiratory Rate 16 15 15 Blood Pressure 158/90 H Pulse Oximetry 100 100 100 12/12/17 01:15 EST 12/12/17 01:30 EST 12/12/17 02:00 Temperature 37.6 C H 36.7 C 36.7 C Pulse Rate 88 87 82 Respiratory Rate 15 14 14 Blood Pressure 129/56 L 143/58 H Pulse Oximetry 100 99 100 12/12/17 02:31 12/12/17 02:45 12/12/17 03:00 Temperature 37.3 C 37.0 C 36.8 C Pulse Rate 84 85 85 Respiratory Rate 14 14 14 Blood Pressure 131/62 Pulse Oximetry 100 100 100 12/12/17 03:01 12/12/17 03:41 12/12/17 03:45 Temperature 36.8 C 37.2 C Pulse Rate 84 83 85 Respiratory Rate 14 14 30 H Blood Pressure 128/58 L 131/68 Pulse Oximetry 100 100 100 12/12/17 04:00 12/12/17 04:30 12/12/17 04:45 Temperature 37.3 C 37.3 C 37.5 C Pulse Rate 86 92 H 84 Respiratory Rate 15 20 16 Blood Pressure 147/75 H 145/70 H Pulse Oximetry 100 100 100 12/12/17 05:00 12/12/17 05:01 12/12/17 05:30 Temperature 37.7 C H 37.7 C H 37.2 C Pulse Rate 85 85 88 Respiratory Rate 22 16 19 Blood Pressure 154/74 H Pulse Oximetry 99 100 99 12/12/17 05:45 12/12/17 06:00 12/12/17 06:01 Temperature 36.8 C 36.6 C 36.6 C Pulse Rate 88 87 87 Respiratory Rate 18 19 19 Blood Pressure 147/70 H Pulse Oximetry 99 98 98 12/12/17 06:15 12/12/17 06:30 12/12/17 06:31 Temperature 36.5 C 36.5 C 36.5 C Pulse Rate 87 86 86 Respiratory Rate 16 13 14 Blood Pressure 145/67 H Pulse Oximetry 98 98 98 12/12/17 06:45 12/12/17 07:00 12/12/17 07:01 Temperature 36.6 C 36.8 C 36.8 C Pulse Rate 84 82 82 Respiratory Rate 14 19 19 Blood Pressure 167/92 H Pulse Oximetry 100 100 100 12/12/17 07:15 12/12/17 07:30 12/12/17 07:31 Temperature 36.9 C 37.0 C 37.0 C Pulse Rate 83 84 83 Respiratory Rate 14 14 14 Blood Pressure 163/92 H Pulse Oximetry 100 100 100 12/12/17 07:36 12/12/17 07:41 12/12/17 07:43 Temperature Pulse Rate 83 83 Respiratory Rate 15 14 Blood Pressure Pulse Oximetry 100 12/12/17 07:45 12/12/17 08:00 12/12/17 08:01 Temperature 37.1 C 37.1 C 37.1 C Pulse Rate 83 85 85 Respiratory Rate 19 16 19 Blood Pressure 181/94 H Pulse Oximetry 100 100 100 12/12/17 08:15 12/12/17 08:16 12/12/17 08:30 Temperature 37.2 C 37.2 C 37.1 C Pulse Rate 84 83 95 H Respiratory Rate 19 20 17 Blood Pressure 166/86 H Pulse Oximetry 100 100 100 12/12/17 08:31 12/12/17 08:45 12/12/17 09:00 Temperature 37.1 C 37.3 C 37.3 C Pulse Rate 96 H 95 H 94 H Respiratory Rate 18 29 H 17 Blood Pressure 166/87 H Pulse Oximetry 100 100 100 12/12/17 09:01 12/12/17 09:15 12/12/17 09:30 Temperature 37.3 C 37.1 C 36.8 C Pulse Rate 95 H 95 H 94 H Respiratory Rate 13 15 15 Blood Pressure 152/68 H Pulse Oximetry 100 99 98 12/12/17 09:31 12/12/17 09:45 12/12/17 10:00 Temperature 36.8 C 37.0 C 37.1 C Pulse Rate 94 H 89 88 Respiratory Rate 15 15 15 Blood Pressure 143/64 H Pulse Oximetry 98 100 99 12/12/17 10:01 12/12/17 10:30 12/12/17 10:31 Temperature 37.1 C 37.2 C 37.2 C Pulse Rate 88 88 88 Respiratory Rate 15 15 15 Blood Pressure 142/64 H 149/68 H Pulse Oximetry 99 100 100 12/12/17 11:00 12/12/17 11:01 12/12/17 11:30 Temperature 37.4 C 37.4 C Pulse Rate 85 86 97 H Respiratory Rate 14 14 21 Blood Pressure 147/68 H Pulse Oximetry 100 100 95 12/12/17 11:31 12/12/17 11:32 12/12/17 11:34 Temperature Pulse Rate 98 H 95 H Respiratory Rate 34 H 22 Blood Pressure 196/112 H 166/77 H Pulse Oximetry 95 96 96 12/12/17 12:00 12/12/17 12:01 12/12/17 12:30 Temperature 37.2 C Pulse Rate 91 H 94 H 91 H Respiratory Rate 21 21 19 Blood Pressure 158/66 H Pulse Oximetry 98 97 98 12/12/17 12:31 12/12/17 13:00 12/12/17 13:01 Temperature Pulse Rate 91 H 87 89 Respiratory Rate 19 25 H 22 Blood Pressure 149/69 H 143/69 H Pulse Oximetry 98 98 99 12/12/17 13:30 12/12/17 13:31 12/12/17 14:00 Temperature Pulse Rate 89 90 84 Respiratory Rate 39 H 28 H 17 Blood Pressure 141/65 H Pulse Oximetry 98 98 100 12/12/17 14:01 12/12/17 14:09 12/12/17 14:30 Temperature Pulse Rate 84 87 87 Respiratory Rate 17 18 19 Blood Pressure 219/100 H 156/72 H Pulse Oximetry 100 99 98 12/12/17 14:31 12/12/17 15:00 12/12/17 15:01 Temperature Pulse Rate 93 H 93 H 90 Respiratory Rate 20 17 17 Blood Pressure 155/72 H 162/78 H Pulse Oximetry 98 94 L 94 L 12/12/17 15:30 12/12/17 15:31 12/12/17 16:00 Temperature 36.9 C Pulse Rate 87 85 81 Respiratory Rate 16 15 16 Blood Pressure 161/70 H Pulse Oximetry 94 L 95 100 12/12/17 16:01 12/12/17 16:19 12/12/17 16:30 Temperature Pulse Rate 82 90 86 Respiratory Rate 15 16 15 Blood Pressure 154/71 H Pulse Oximetry 100 96 12/12/17 16:31 12/12/17 17:00 12/12/17 17:01 Temperature Pulse Rate 87 96 H 93 H Respiratory Rate 17 15 15 Blood Pressure 132/56 L 135/62 Pulse Oximetry 96 94 L 92 L 12/12/17 17:30 12/12/17 17:31 12/12/17 18:00 Temperature Pulse Rate 91 H 92 H 90 Respiratory Rate 15 16 20 Blood Pressure 120/56 L Pulse Oximetry 93 L 93 L 93 L 12/12/17 18:01 Temperature Pulse Rate 89 Respiratory Rate 15 Blood Pressure 118/57 L Pulse Oximetry 93 L Intake & Output 12/12/17 12/12/17 12/13/17 06:59 18:59 06:59 Intake Total 2650 / 2650 Output Total 450 / 450 Balance 2200 / 2200 Weight Intake: IV 1930 / 1930 LR 1000 mL Inj 1,000 ML @ 200 1850 / 1850 mls/hr IV.CONT .Q5H [facility] Rx#: [id number] Versed Inj 50 mg In 50 ml @ 2 50 / 50 MG/HR 2 mls/hr IV.CONT TITRATE PRN Rx#:[id number] Diprivan 1000 mg/100 ml Inj 1, 30 / 30 000 mg In 100 ml @ 5 MCG/KG/MIN 2.994 mls/hr IV.CONT TITRATE PRN Rx#:[id number] MVI-12 Inj 10 ML Thiamine Inj 100 MG Folvite Inj 1 MG In NS Inj 500 ML @ 125 mls/hr IV.SIG Q24H [facility] Rx#:[id number] Oral 720 / 720 Output: Urine Amount (Catheter) 450 / 450 Indwelling Urethral Catheter 450 / 450 Gastric Drainage Orogastric Tube Other: Date of Last Bowel Movement 12/12/17 # Bowel Movements 1 Result Diagrams: 12/12/17 03:55 12/12/17 03:55 Objective Remarks: GENERAL: Middle-age appearing male, sitting in bed, no acute distress. HEENT: Normocephalic. Atraumatic. PERRL. Mucous membranes are moist NECK: Trachea is midline. There is no JVD. CHEST: Equal chest rise. room air. unlabored. CARDIOVASCULAR: Normal rate, regular rhythm. Sinus. ABDOMEN: Soft, nontender, nondistended. No guarding. MUSCULOSKELETAL: Pulses 2+. No peripheral edema. NEUROLOGICAL: RASS 0. CAM-. no focal deficits. following commands. Assessment and Plan - Assessment and Plan Plan: Assessment: Middle-age male with resolved toxic encephalopathy. stable to transition out of ICU. will consult hospitalist to assume care in AM. continue ivf to assist with renal clearance of CK. Plan by systems: Neurologic: Acute toxic encephalopathy- resolved Cocaine abuse Propofol and fentanyl for goal RASS -2 Avoid long-acting sedatives Frequent neurochecks IV thiamine multivitamin Respiratory: Acute hypoxic and hypercarbic respiratory failure- resolved Head of bed elevated OOB and ambulating. Cardiovascular: Sinus tachycardia- resolved Likely secondary to intoxication IV fluids Renal: Acute kidney injury- resolving. Acute rhabdomyolysis- resolving. Secondary to dehydration Maintenance IV fluids Trend creatinine Close urine output monitoring Trend CKs -- Strict I/Os FEN/GI: regular diet as tolerated. ICU electrolyte protocol Serial BMP, magnesium, phosphorus Heme/ID: No infectious etiology suspected this time Daily CBC Endocrine: -- SSI Prophylaxis: GI Prophylaxis Pepcid DVT Prophylaxis -- SCDs Lovenox Lines: Peripheral IVs Dispo: transfer out of ICU. consult hospitalist service to assume care in AM.
[2017-12-12] MEDS: Famotidine 20 MG Tablet PO SCH (20:50)
[2017-12-12] MEDS: Sodium Chloride 0.9% 2 ML Flush BID IV.FLUSH SCH (20:50)
[2017-12-12 22:28] LABS: CKMB Percent 0.1 % (0.0-4.0)
--- NOTE | 2017-12-12 23:44 | ECG ---
Date Performed: 12/11/2017 Time Performed: 13:29:03 PTAGE: 89 years EKG: SINUS TACHYCARDIA ABNORMAL RHYTHM ECG NO PREVIOUS TRACING DOCTOR: Yg Salas Interpretating Date/Time 12/12/2017 23:43:09
[2017-12-13] MEDS: Insulin NovoLIN Regular Correctional Sugar Inj SQ SCH ×2 (00:21→06:20)
[2017-12-13 03:22] LABS: Baso % (Auto) 0.4 % (0.0-2.0); Eos # (Auto) 0.1 th/mm3 (0.0-0.4); Eos % (Auto) 1.9 % (0.0-4.0); Hematocrit 35.1 % (39.0-51.0); Hemoglobin 11.6 gm/dL (13.0-17.0); Lymph # (Auto) 2.5 th/mm3 (1.0-4.8); Lymph % (Auto) 32.8 % (9.0-44.0); Mean Corpuscular HGB Conc 33.1 % (32.0-36.0); Mean Corpuscular Hemoglobin 30.3 pg (27.0-34.0); Mean Corpuscular Volume 91.4 fL (80.0-100.0); Mean Platelet Volume 9.1 fL (7.0-11.0); Mono # (Auto) 0.7 th/mm3 (0.0-0.9); Mono % (Auto) 9.4 % (0.0-8.0); Neut # (Auto) 4.2 th/mm3 (1.8-7.7); Neut % (Auto) 55.5 % (16.0-70.0); Platelet Count 200 th/mm3 (150-450); Red Blood Count 3.84 mil/mm3 (4.50-5.90); Red Cell Distribution Width 12.8 % (11.6-17.2); White Blood Count 7.6 th/mm3 (4.0-11.0)
[2017-12-13 03:49] LABS: Alanine Aminotransferase 81 U/L (12-78); Albumin 2.9 g/dL (3.4-5.0); Alkaline Phosphatase 60 U/L (45-117); Anion Gap 7 meq/L (5-15); Aspartate Aminotransferase 84 U/L (15-37); Blood Urea Nitrogen 7 mg/dL (7-18); Carbon Dioxide 31.1 meq/L (21.0-32.0); Chloride 107 meq/L (98-107); Creatine Kinase 2053 U/L (39-308); Glomerular Filtration Rate 57 mL/min (>89); Glucose,Random 115 mg/dL (74-106); Magnesium 2.3 mg/dL (1.5-2.5); Phosphorus 3.7 mg/dL (2.5-4.9); Potassium 3.5 meq/L (3.5-5.1); Sodium 145 meq/L (136-145); Total Protein 6.1 g/dL (6.4-8.2)
[2017-12-13 04:07] LABS: CKMB Percent 0.1 % (0.0-4.0); Creatine Kinase MB 2.3 ng/mL (0.5-3.6)
[2017-12-13] MEDS: Chlorhexidine Gluconate 2% 1 Pack (2 Cloths) TOPICAL SCH (06:19)
[2017-12-13] MEDS ORDERED: Folic Acid 1 MG Tablet PO SCH (09:00)
[2017-12-13] MEDS: Senna/Docusate Sodium 8.6/50 MG Tablet PO SCH (09:28)
[2017-12-13] MEDS: Famotidine 20 MG Tablet PO SCH ×2 (09:28→21:03)
[2017-12-13] MEDS: Polyethylene Glycol 3350 17 GM Packet PO SCH (09:28)
[2017-12-13] MEDS: Sodium Chloride 0.9% 2 ML Flush BID IV.FLUSH SCH ×2 (09:35→21:02)
[2017-12-13 10:35] LABS: CKMB Percent 0.1 % (0.0-4.0); Creatine Kinase MB 2.2 ng/mL (0.5-3.6)
--- NOTE | 2017-12-13 10:38 | P.PNIM ---
Subjective Interval history: Patient still has elevated creatine kinase. Improvement is seen through time. Patient is able to ambulate with difficulty. Physical Exam Vital signs: Vital Signs 12/12/17 11:00 12/12/17 11:01 12/12/17 11:30 Temperature 99.3 F 99.3 F Pulse Rate 85 86 97 H Respiratory Rate 14 14 21 Blood Pressure 147/68 H Pulse Oximetry 100 100 95 12/12/17 11:31 12/12/17 11:32 12/12/17 11:34 Temperature Pulse Rate 98 H 95 H Respiratory Rate 34 H 22 Blood Pressure 196/112 H 166/77 H Pulse Oximetry 95 96 96 12/12/17 12:00 12/12/17 12:01 12/12/17 12:30 Temperature 98.9 F Pulse Rate 91 H 94 H 91 H Respiratory Rate 21 21 19 Blood Pressure 158/66 H Pulse Oximetry 98 97 98 12/12/17 12:31 12/12/17 13:00 12/12/17 13:01 Temperature Pulse Rate 91 H 87 89 Respiratory Rate 19 25 H 22 Blood Pressure 149/69 H 143/69 H Pulse Oximetry 98 98 99 12/12/17 13:30 12/12/17 13:31 12/12/17 14:00 Temperature Pulse Rate 89 90 84 Respiratory Rate 39 H 28 H 17 Blood Pressure 141/65 H Pulse Oximetry 98 98 100 12/12/17 14:01 12/12/17 14:09 12/12/17 14:30 Temperature Pulse Rate 84 87 87 Respiratory Rate 17 18 19 Blood Pressure 219/100 H 156/72 H Pulse Oximetry 100 99 98 12/12/17 14:31 12/12/17 15:00 12/12/17 15:01 Temperature Pulse Rate 93 H 93 H 90 Respiratory Rate 20 17 17 Blood Pressure 155/72 H 162/78 H Pulse Oximetry 98 94 L 94 L 12/12/17 15:30 12/12/17 15:31 12/12/17 16:00 Temperature 98.4 F Pulse Rate 87 85 81 Respiratory Rate 16 15 16 Blood Pressure 161/70 H Pulse Oximetry 94 L 95 100 12/12/17 16:01 12/12/17 16:19 12/12/17 16:30 Temperature Pulse Rate 82 90 86 Respiratory Rate 15 16 15 Blood Pressure 154/71 H Pulse Oximetry 100 96 12/12/17 16:31 11/04/18 17:00 12/12/17 17:01 Temperature Pulse Rate 87 96 H 93 H Respiratory Rate 17 15 15 Blood Pressure 132/56 L 135/62 Pulse Oximetry 96 94 L 92 L 12/12/17 17:30 12/12/17 17:31 12/12/17 18:00 Temperature Pulse Rate 91 H 92 H 90 Respiratory Rate 15 16 20 Blood Pressure 120/56 L Pulse Oximetry 93 L 93 L 93 L 12/12/17 18:01 12/12/17 19:00 12/12/17 20:00 Temperature 99.4 F 99.6 F Pulse Rate 89 90 90 Respiratory Rate 15 21 22 Blood Pressure 118/57 L 157/80 H 151/65 H Pulse Oximetry 93 L 94 L 95 12/12/17 21:00 12/12/17 21:21 12/12/17 22:00 Temperature 99.6 F 99.4 F Pulse Rate 90 88 100 H Respiratory Rate 22 20 26 H Blood Pressure 138/62 123/54 L Pulse Oximetry 97 96 12/12/17 22:01 12/12/17 22:30 12/12/17 22:31 Temperature Pulse Rate 97 H 100 H 106 H Respiratory Rate 23 24 23 Blood Pressure 123/54 L 146/69 H Pulse Oximetry 95 95 95 12/12/17 23:00 12/12/17 23:01 12/12/17 23:33 Temperature 99.4 F Pulse Rate 94 H 93 H 86 Respiratory Rate 19 19 Blood Pressure 139/63 139/63 Pulse Oximetry 93 L 93 L 92 L 12/13/17 00:00 12/13/17 00:01 12/13/17 00:30 Temperature 99.6 F Pulse Rate 89 89 84 Respiratory Rate 18 17 16 Blood Pressure 141/60 H 141/60 H Pulse Oximetry 93 L 93 L 93 L 12/13/17 00:31 12/13/17 01:00 12/13/17 01:01 Temperature Pulse Rate 84 87 88 Respiratory Rate 17 17 19 Blood Pressure 139/62 111/51 L 111/51 L Pulse Oximetry 92 L 92 L 93 L 12/13/17 01:30 12/13/17 01:31 12/13/17 02:00 Temperature Pulse Rate 88 86 85 Respiratory Rate 17 17 16 Blood Pressure 118/53 L 136/60 Pulse Oximetry 95 95 95 12/13/17 02:01 12/13/17 02:30 12/13/17 02:31 Temperature Pulse Rate 85 83 83 Respiratory Rate 16 20 17 Blood Pressure 136/60 142/69 H Pulse Oximetry 96 94 L 95 12/13/17 03:00 12/13/17 03:01 12/13/17 03:30 Temperature Pulse Rate 79 80 82 Respiratory Rate 16 17 18 Blood Pressure 121/58 L 121/58 L Pulse Oximetry 100 99 93 L 12/13/17 03:31 12/13/17 04:00 12/13/17 04:01 Temperature 99.4 F Pulse Rate 79 78 78 Respiratory Rate 14 16 17 Blood Pressure 131/61 131/61 152/72 H Pulse Oximetry 93 L 95 94 L 12/13/17 04:30 12/13/17 04:31 12/13/17 05:00 Temperature Pulse Rate 77 77 95 H Respiratory Rate 18 16 36 H Blood Pressure 154/76 H 150/84 H Pulse Oximetry 94 L 94 L 94 L 12/13/17 05:01 12/13/17 05:30 12/13/17 05:31 Temperature Pulse Rate 98 H 82 87 Respiratory Rate 19 19 20 Blood Pressure 150/84 H 140/78 Pulse Oximetry 93 L 94 L 95 12/13/17 06:00 12/13/17 06:11 12/13/17 06:30 Temperature Pulse Rate 81 80 76 Respiratory Rate 15 16 23 Blood Pressure 140/78 144/85 H Pulse Oximetry 95 95 95 12/13/17 07:00 12/13/17 07:30 12/13/17 08:00 Temperature 98.1 F Pulse Rate 83 70 76 Respiratory Rate 19 18 20 Blood Pressure Pulse Oximetry 96 95 93 L 12/13/17 08:30 12/13/17 09:30 Temperature Pulse Rate 70 Respiratory Rate 18 Blood Pressure Pulse Oximetry 93 L 94 L Intake & Output 12/12/17 12/13/17 12/13/17 18:59 06:59 18:59 Intake Total 2650 / 2650 2231.2 / 2231.2 1000 / 1000 Output Total 450 / 450 3 / 3 Balance 2200 / 2200 2228.2 / 2228.2 1000 / 1000 Weight 96.7 kg Intake: IV 1930 / 1930 1511.2 / 1511.2 1000 / 1000 LR 1000 mL Inj 1,000 ML @ 200 1850 / 1850 1000 / 1000 1000 / 1000 mls/hr IV.CONT .Q5H JOB Rx#: [id number] Versed Inj 50 mg In 50 ml @ 2 50 / 50 MG/HR 2 mls/hr IV.CONT TITRATE PRN Rx#:[id number] Diprivan 1000 mg/100 ml Inj 1, 30 / 30 000 mg In 100 ml @ 5 MCG/KG/MIN 2.994 mls/hr IV.CONT TITRATE PRN Rx#:[id number] MVI-12 Inj 10 ML Thiamine Inj 511.2 / 511.2 100 MG Folvite Inj 1 MG In NS Inj 500 ML @ 125 mls/hr IV.SIG Q24H JOB Rx#:[id number] Oral 720 / 720 720 / 720 Output: Urine 3 / 3 Urine Amount (Catheter) 450 / 450 Indwelling Urethral Catheter 450 / 450 Other: Date of Last Bowel Movement 12/12/17 12/13/17 12/12/17 # Bowel Movements 1 1 Narrative: GENERAL: NAD, A&Ox3 HEAD: Normocephalic. NECK: Supple, trachea midline. No lymphadenopathy. EYES: No scleral icterus. No injection or drainage. CARDIOVASCULAR: Regular rate and rhythm without murmurs, gallops, or rubs. RESPIRATORY: Breath sounds equal bilaterally. No accessory muscle use. GASTROINTESTINAL: Abdomen soft, non-tender, nondistended. MUSCULOSKELETAL: No cyanosis, or edema. SKIN: Warm and dry. NEURO: No focal neurological deficits. - Urinary Catheter Management Indwelling Urethral Catheter Cath placed during this visit: yes, but has since been removed by the nurse Reason for continuing: Decision to DC catheter Insertion date: 12/11/17 Insertion time: 13:42 Removal date: 12/12/17 Removal time: 11:31 Results - Labs CBC & Chem 7: 12/13/17 02:38 12/13/17 02:38 Laboratory Results - last 24 hr 12/12/17 12/12/17 12/12/17 11:14 12:10 16:15 WBC RBC Hgb Hct MCV MCH MCHC RDW Plt Count MPV Neut % (Auto) Lymph % (Auto) [place] % (Auto) Eos % (Auto) Baso % (Auto) Neut # (Auto) Lymph # (Auto) [place] # (Auto) Eos # (Auto) Baso # (Auto) WBC Differential Differential Comment Sodium Potassium Chloride Carbon Dioxide Anion Gap BUN Creatinine Estimated GFR POC Glucose 82 Random Glucose Calcium Phosphorus Magnesium Total Bilirubin AST ALT Alkaline Phosphatase Total Creatine Kinase 4978 H 3302 H CK-MB (CK-2) 7.2 H 4.4 H CK-MB (CK-2) % 0.1 0.1 Total Protein Albumin 12/12/17 12/12/17 12/13/17 21:15 23:35 02:38 WBC RBC Hgb Hct MCV MCH MCHC RDW Plt Count MPV Neut % (Auto) Lymph % (Auto) [place] % (Auto) Eos % (Auto) Baso % (Auto) Neut # (Auto) Lymph # (Auto) [place] # (Auto) Eos # (Auto) Baso # (Auto) WBC Differential Differential Comment Sodium 145 Potassium 3.5 Chloride 107 Carbon Dioxide 31.1 Anion Gap 7 BUN 7 Creatinine 1.11 Estimated GFR 57 L POC Glucose 122 H Random Glucose 115 H Calcium 8.0 L Phosphorus 3.7 Magnesium 2.3 Total Bilirubin 0.5 AST 84 H ALT 81 H Alkaline Phosphatase 60 Total Creatine Kinase 2553 H 2053 H CK-MB (CK-2) 3.0 2.3 CK-MB (CK-2) % 0.1 0.1 Total Protein 6.1 L D Albumin 2.9 L D 12/13/17 12/13/17 12/13/17 02:38 06:17 09:10 WBC 7.6 RBC 3.84 L Hgb 11.6 L Hct 35.1 L MCV 91.4 MCH 30.3 MCHC 33.1 RDW 12.8 Plt Count 200 MPV 9.1 Neut % (Auto) 55.5 Lymph % (Auto) 32.8 [place] % (Auto) 9.4 H Eos % (Auto) 1.9 Baso % (Auto) 0.4 Neut # (Auto) 4.2 Lymph # (Auto) 2.5 [place] # (Auto) 0.7 Eos # (Auto) 0.1 Baso # (Auto) 0.0 WBC Differential . Differential Comment Auto diff final Sodium Potassium Chloride Carbon Dioxide Anion Gap BUN Creatinine Estimated GFR POC Glucose 133 H Random Glucose Calcium Phosphorus Magnesium Total Bilirubin AST ALT Alkaline Phosphatase Total Creatine Kinase 1771 H CK-MB (CK-2) CK-MB (CK-2) % Total Protein Albumin Microbiology 11/03/18 13:50 Clean Catch Urine Urine Culture - Preliminary No growth in 24 hours Assessment and Plan - Plan 42-year-old male admitted secondary to toxic encephalopathy with rhabdomyolysis secondary to drug abuse. Acute toxic encephalopathy- resolved Acute hypoxic and hypercarbic respiratory failure- resolved Sinus tachycardia- resolved Cocaine abuse Patient counseled to quit drug abuse Continue multivitamin Acute kidney injury- resolving. Acute rhabdomyolysis- resolving. Continue IV hydration Follow CK Monitor renal function DVT Prophylaxis SCDs Lovenox
[2017-12-14 08:17] LABS: Baso % (Auto) 0.6 % (0.0-2.0); Eos # (Auto) 0.3 th/mm3 (0.0-0.4); Eos % (Auto) 4.4 % (0.0-4.0); Hematocrit 35.6 % (39.0-51.0); Hemoglobin 11.9 gm/dL (13.0-17.0); Lymph # (Auto) 2.2 th/mm3 (1.0-4.8); Lymph % (Auto) 35.1 % (9.0-44.0); Mean Corpuscular HGB Conc 33.5 % (32.0-36.0); Mean Corpuscular Hemoglobin 30.6 pg (27.0-34.0); Mean Corpuscular Volume 91.5 fL (80.0-100.0); Mono # (Auto) 0.5 th/mm3 (0.0-0.9); Mono % (Auto) 7.7 % (0.0-8.0); Neut # (Auto) 3.2 th/mm3 (1.8-7.7); Neut % (Auto) 52.2 % (16.0-70.0); Platelet Count 197 th/mm3 (150-450); Red Blood Count 3.89 mil/mm3 (4.50-5.90); Red Cell Distribution Width 12.5 % (11.6-17.2); White Blood Count 6.1 th/mm3 (4.0-11.0)
[2017-12-14 08:43] LABS: Anion Gap 6 meq/L (5-15); Aspartate Aminotransferase 51 U/L (15-37); Blood Urea Nitrogen 7 mg/dL (7-18); Calcium 8.2 mg/dL (8.5-10.1); Carbon Dioxide 30.2 meq/L (21.0-32.0); Chloride 107 meq/L (98-107); Glomerular Filtration Rate 84 mL/min (>89); Glucose,Random 101 mg/dL (74-106); Potassium 3.8 meq/L (3.5-5.1); Sodium 143 meq/L (136-145)
[2017-12-14 08:48] LABS: Alanine Aminotransferase 77 U/L (12-78); Alkaline Phosphatase 62 U/L (45-117); Creatine Kinase 960 U/L (39-308); Total Protein 6.5 g/dL (6.4-8.2)
[2017-12-14 09:03] LABS: CKMB Percent 0.1 % (0.0-4.0); Creatine Kinase MB 1.3 ng/mL (0.5-3.6)
[2017-12-14] MEDS: Sodium Chloride 0.9% 2 ML Flush BID IV.FLUSH SCH ×2 (10:03→20:27)
[2017-12-14] MEDS: Famotidine 20 MG Tablet PO SCH ×2 (10:03→20:26)
--- NOTE | 2017-12-14 11:08 | P.PN ---
Subjective Interval history: Follow up on patient with toxic encephalopathy, acute hypoxic respiratory failure, DAVID. Patient and examined. Patient complaining of dizziness with a sensation that he is spinning around the room while he is lying in the bed. He also states his eyesight has been a little fuzzy. He says he feels like his "kidneys are working hard". He denies any headache, lightheadedness or sensation of presyncope. He denies any nausea or vomiting. He denies any chest pain, shortness of breath or abdominal pain. He denies any dysuria but states he has discomfort which he describes as "increased sensation when he urinates". He reports normal urinary output. He reports a normal BM earlier this morning. Physical Exam Vital signs: Vital Signs 12/13/17 11:30 12/13/17 12:00 12/13/17 12:30 Temperature 98.5 F Pulse Rate 73 72 70 Respiratory Rate 19 21 17 Blood Pressure Pulse Oximetry 97 97 93 L 12/13/17 12:55 12/13/17 13:00 12/13/17 13:30 Temperature Pulse Rate 77 82 76 Respiratory Rate 20 23 20 Blood Pressure 137/84 Pulse Oximetry 96 95 96 12/13/17 14:00 12/13/17 14:30 12/13/17 15:00 Temperature Pulse Rate 73 75 70 Respiratory Rate 21 20 18 Blood Pressure Pulse Oximetry 96 97 94 L 12/13/17 15:30 12/13/17 16:00 12/13/17 16:30 Temperature 98.4 F Pulse Rate 71 67 67 Respiratory Rate 22 21 19 Blood Pressure Pulse Oximetry 94 L 94 L 95 12/13/17 19:20 12/14/17 00:30 12/14/17 04:55 Temperature 98.5 F 98.0 F 97.8 F Pulse Rate 68 61 61 Respiratory Rate 18 17 17 Blood Pressure 138/79 150/76 H 137/67 Pulse Oximetry 96 94 L 94 L 12/14/17 08:00 Temperature 98.5 F Pulse Rate 67 Respiratory Rate 18 Blood Pressure 144/69 H Pulse Oximetry 96 Intake & Output 12/13/17 12/14/17 12/14/17 18:59 06:59 18:59 Intake Total 1000 / 1000 800 / 800 Output Total 1999 / 1999 Balance -1000 / -1000 800 / 800 Weight 96.7 kg Intake: IV 1000 / 1000 LR 1000 mL Inj 1,000 ML @ 200 1000 / 1000 mls/hr IV.CONT .Q5H JOB Rx#: [id number] Oral 800 / 800 Output: Urine 1999 / 1999 Other: # Voids 2 Date of Last Bowel Movement 12/12/17 12/14/17 # Bowel Movements 1 Weight On Admission 96.7 kg Narrative: GENERAL: WDWN male patient, INAD. Awake and alert. Appears comfortable. No facial asymmetry. No slurred speech. SKIN: Warm and dry. HEENT: Atraumatic. Normocephalic. Pupils equal and round. No scleral icterus. No injection or drainage. No nasal bleeding or discharge. Mucous membranes pink and moist. NECK: Trachea midline. CARDIOVASCULAR: Regular rate and rhythm. RESPIRATORY: No accessory muscle use. Clear to auscultation. Breath sounds equal bilaterally. GASTROINTESTINAL: Abdomen soft, non-tender, nondistended. +BS. MUSCULOSKELETAL: Extremities without clubbing, cyanosis, or edema. No obvious deformities. NEUROLOGICAL: Awake and alert. No obvious cranial nerve deficits. Motor grossly within normal limits. Able to move all extremities spontaneously. No focal neurologic findings noted. Normal speech. PSYCHIATRIC: Calm and cooperative. - Urinary Catheter Management Indwelling Urethral Catheter Cath placed during this visit: yes, but has since been removed by the nurse Reason for continuing: Decision to DC catheter Insertion date: 12/11/17 Insertion time: 13:42 Removal date: 12/12/17 Removal time: 11:31 Results - Labs CBC & Chem 7: 12/14/17 07:01 12/14/17 07:01 Laboratory Results - last 24 hr 12/13/17 12/14/17 12/14/17 11:52 07:01 07:01 WBC 6.1 RBC 3.89 L Hgb 11.9 L Hct 35.6 L MCV 91.5 MCH 30.6 MCHC 33.5 RDW 12.5 Plt Count 197 MPV 9.0 Neut % (Auto) 52.2 Lymph % (Auto) 35.1 [place] % (Auto) 7.7 Eos % (Auto) 4.4 H Baso % (Auto) 0.6 Neut # (Auto) 3.2 Lymph # (Auto) 2.2 [place] # (Auto) 0.5 Eos # (Auto) 0.3 Baso # (Auto) 0.0 WBC Differential . Differential Comment Auto diff final Sodium 143 Potassium 3.8 Chloride 107 Carbon Dioxide 30.2 Anion Gap 6 BUN 7 Creatinine 1.17 Estimated GFR 84 L POC Glucose 92 Random Glucose 101 Calcium 8.2 L Total Bilirubin 0.5 AST 51 H ALT 77 Alkaline Phosphatase 62 Total Creatine Kinase 960 H CK-MB (CK-2) 1.3 CK-MB (CK-2) % 0.1 Total Protein 6.5 Albumin 3.0 L Microbiology 12/11/17 13:50 Clean Catch Urine Urine Culture - Final No growth in 48 hours - Imaging Impressions Chest X-Ray 12/11/17 13:33 CONCLUSION: No acute cardiopulmonary disease identified. Head CT 12/11/17 13:33 CONCLUSION: 1. Bilateral ethmoid sinus disease and right-sided maxillary sinus disease. 2. No acute intracranial findings. . Assessment and Plan - Plan 42-year-old male admitted secondary to toxic encephalopathy with rhabdomyolysis secondary to drug abuse. Acute toxic encephalopathy- resolved Acute hypoxic and hypercarbic respiratory failure- resolved Sinus tachycardia- resolved Cocaine abuse UDS positive for cocaine and benzodiazepines Patient counseled to quit drug abuse Continue multivitamin monitor respiratory status Dizziness, possibly vertigo, possibly due to withdrawal Will have patient re-evaluated by PT Meclizine prn dizziness check Orthostatic BP measurements Monitor for improvement Acute kidney injury- resolving. Acute rhabdomyolysis- resolving. CK trending down, kidney fxn improving No longer on IV hydration Encourage po fluid intake Monitor renal function Hypertensive, suspect secondary to withdrawal Continue on Clonidine scheduled Urinary discomfort UCX 12/11 with no growth repeat UA DVT Prophylaxis SCDs Lovenox Discussed Condition With: patient, nursing staff, Dr. Medrano Discharge Planning: Probable discharge later today pending PT re-evaluation and orthostatic BP measurements
[2017-12-14 14:23] LABS: Bilirubin,Urine Negative (Negative); Clarity,Urine Clear (Clear); Color,Urine Yellow (Yellw/Straw); Glucose,Urine (UA) Negative (Negative); Leukocyte Esterase,Urine Negative (Negative); Mucus,Urine Few /lpf (Occasional); Nitrite,Urine Negative (Negative); Specific Gravity,Urine 1.014 (1.002-1.035); Urobilinogen,Urine 4 or Greater mg/dL (Less than 2)
--- NOTE | 2017-12-14 17:08 | P.DS ---
Date of admission: 12/11/17 16:33 Primary care physician: UNKNOWN Attending physician on discharge: Sai Medrano Anticipated date of discharge: 12/14/17 Brief History from admission: Middle-age male who was found acting erratically at 711. He was being aggressive. He was sedated with ketamine IV and then became unresponsive and apneic. The EMS was unable to intubate the patient. He was intubated upon arrival to the emergency department. No additional information is available from the patient. Patient has an elevated CK level suggestive of rhabdomyolysis and a severely elevated lactate with a normal pH which could suggest seizure activity. Patient's urine drug screen is positive for cocaine. No additional information is available from the patient. Review systems is unobtainable. Patient update on day of discharge: Follow up on patient with toxic encephalopathy, acute hypoxic respiratory failure, DAVID. Patient and examined. Patient complaining of dizziness with a sensation that he is spinning around the room while he is lying in the bed. He also states his eyesight has been a little fuzzy. He says he feels like his "kidneys are working hard". He denies any headache, lightheadedness or sensation of presyncope. He denies any nausea or vomiting. He denies any chest pain, shortness of breath or abdominal pain. He denies any dysuria but states he has discomfort which he describes as "increased sensation when he urinates". He reports normal urinary output. He reports a normal BM earlier this morning. DS: Diagnosis - Discharge Diagnosis (1) Cocaine abuse Status: Acute (2) Substance induced mood disorder Status: Acute (3) Altered mental status Status: Acute (4) Required emergent intubation Status: Acute (5) Acute renal failure Status: Acute (6) Rhabdomyolysis Status: Acute DS: Medications - Discharge Medications Prescriptions: clonidine HCl [Catapres] 0.1 mg PO TID #90 tab meclizine 25 mg PO Q8H PRN #15 tab PRN Reason: Dizziness DS: Summary Hospital Course: Patient was found acting erratically at 711. He was sedated with ketamine IV and became unresponsive and apneic. Patient was intubated upon arrival to the emergency department was admitted to the critical care service. He was found to have elevated CK level suggestive of rhabdomyolysis and severely elevated lactate. Patient's urine drug screen is positive for cocaine. On 12/12, patient was extubated. Patient's mentation returned to baseline. His CK trended down on IV fluid hydration. Patient developed some dizziness which improved with meclizine. He was evaluated by physical therapy who did not identify any needs at discharge. - Time Spent with Patient Total time spent providing and/or coordinating discharge services: Greater than 30 minutes - Quality: VTE Deep Vein Thrombosis/Pulmonary Embolism Present on Admission: No Exam Vital signs: Vital Signs 12/13/17 19:20 12/14/17 00:30 12/14/17 04:55 Temperature 98.5 F 98.0 F 97.8 F Pulse Rate 68 61 61 Respiratory Rate 18 17 17 Blood Pressure 138/79 150/76 H 137/67 Pulse Oximetry 96 94 L 94 L 12/14/17 08:00 12/14/17 12:00 12/14/17 16:00 Temperature 98.5 F 98.3 F 98.9 F Pulse Rate 67 71 63 Respiratory Rate 18 18 18 Blood Pressure 144/69 H 132/59 L 149/83 H Pulse Oximetry 96 93 L 95 Intake & Output 12/13/17 12/14/17 12/14/17 18:59 06:59 18:59 Intake Total 1000 / 1000 800 / 800 Output Total 1999 / 1999 Balance -1000 / -1000 800 / 800 Weight 96.7 kg Intake: IV 1000 / 1000 LR 1000 mL Inj 1,000 ML @ 200 1000 / 1000 mls/hr IV.CONT .Q5H JOB Rx#: [id number] Oral 800 / 800 Output: Urine 1999 / 1999 Other: # Voids 2 Date of Last Bowel Movement 12/12/17 12/14/17 # Bowel Movements 1 Weight On Admission 96.7 kg Narrative: GENERAL: WDWN male patient, INAD. Awake and alert. Appears comfortable. No facial asymmetry. No slurred speech. SKIN: Warm and dry. HEENT: Atraumatic. Normocephalic. Pupils equal and round. No scleral icterus. No injection or drainage. No nasal bleeding or discharge. Mucous membranes pink and moist. NECK: Trachea midline. CARDIOVASCULAR: Regular rate and rhythm. RESPIRATORY: No accessory muscle use. Clear to auscultation. Breath sounds equal bilaterally. GASTROINTESTINAL: Abdomen soft, non-tender, nondistended. +BS. MUSCULOSKELETAL: Extremities without clubbing, cyanosis, or edema. No obvious deformities. NEUROLOGICAL: Awake and alert. No obvious cranial nerve deficits. Motor grossly within normal limits. Able to move all extremities spontaneously. No focal neurologic findings noted. Normal speech. PSYCHIATRIC: Calm and cooperative. Results Procedures completed during hospitalization: None Labs on day of discharge: Labs from last 24 hours 12/14/17 12/14/17 12/14/17 13:47 07:01 07:01 WBC 6.1 RBC 3.89 L Hgb 11.9 L Hct 35.6 L MCV 91.5 MCH 30.6 MCHC 33.5 RDW 12.5 Plt Count 197 MPV 9.0 Neut % (Auto) 52.2 Lymph % (Auto) 35.1 [place] % (Auto) 7.7 Eos % (Auto) 4.4 H Baso % (Auto) 0.6 Neut # (Auto) 3.2 Lymph # (Auto) 2.2 [place] # (Auto) 0.5 Eos # (Auto) 0.3 Baso # (Auto) 0.0 WBC Differential . Differential Comment Auto diff final Sodium 143 Potassium 3.8 Chloride 107 Carbon Dioxide 30.2 Anion Gap 6 BUN 7 Creatinine 1.17 Estimated GFR 84 L Random Glucose 101 Calcium 8.2 L Total Bilirubin 0.5 AST 51 H ALT 77 Alkaline Phosphatase 62 Total Creatine Kinase 960 H CK-MB (CK-2) 1.3 CK-MB (CK-2) % 0.1 Total Protein 6.5 Albumin 3.0 L Urine Color Yellow Urine Clarity Clear Urine pH 7.0 Ur Specific [place] 1.014 Urine Protein Negative Urine Glucose (UA) Negative Urine Ketones Negative Urine Occult Blood Negative Urine Nitrate Negative Urine Bilirubin Negative Urine Urobilinogen 4 or greater Ur Leukocyte Esterase Negative Urine RBC Less than 1 Urine WBC Less than 1 Urine Mucus Few H Micro UA Comment Culture not ind Ur Microscopic Review Not Reportable Urine Culture Comments Culture not ind - Impressions ITS Impressions Chest X-Ray 12/11/17 13:33 CONCLUSION: No acute cardiopulmonary disease identified. Head CT 12/11/17 13:33 CONCLUSION: 1. Bilateral ethmoid sinus disease and right-sided maxillary sinus disease. 2. No acute intracranial findings. . Discharge Plan - Discharge Disposition Patient Disposition: 01 Discharge Home - Discharge Condition Condition: Fair - Discharge Order Discharge Orders: Discharge Order (Routine); Ordered 12/14/17 Ordered By: Fariba Barry - Discharge Details Anticipated Discharge Date: 12/14/17 Discharge Comment: Discharge pending evaluation by PT today with complaints of dizziness - Physicians Team Primary Care Provider: UNKNOWN, Attending Provider: Sai Medrano
[2017-12-14] MEDS ORDERED: Melatonin 5 MG Tablet PO ONE (22:38)
[2017-12-15 00:25] VITALS: O2SAT 97
--- NOTE | 2017-12-15 07:28 | P.PN ---
Subjective Interval history: Patient scheduled for d/c yesterday. D/C held due to patient complaining of dizziness. Patient has no complaints of dizziness today. He wants to go home. DW nursing staff, no adverse events overnight. Physical Exam Vital signs: Vital Signs 12/14/17 08:00 12/14/17 12:00 12/14/17 16:00 Temperature 98.5 F 98.3 F 98.9 F Pulse Rate 67 71 63 Respiratory Rate 18 Blood Pressure 144/69 H 132/59 L 149/83 H Pulse Oximetry 96 93 L 95 12/14/17 19:50 12/14/17 20:10 12/15/17 00:09 Temperature 98.9 F 98.7 F 98.6 F Pulse Rate 55 L 62 60 Respiratory Rate 18 Blood Pressure 153/81 H 145/82 H 142/81 H Pulse Oximetry 95 98 97 Intake & Output 12/14/17 12/15/17 12/15/17 18:59 06:59 18:59 Intake Total 960 / 960 480 / 480 Balance 960 / 960 480 / 480 Weight 96.7 kg Intake: Oral 960 / 960 480 / 480 Other: # Voids 2 2 Date of Last Bowel Movement 12/13/17 # Bowel Movements 0 Narrative: GENERAL: WDWN male patient, INAD. Awake and alert. Appears comfortable. SKIN: Warm and dry. HEENT: Atraumatic. Normocephalic. Pupils equal and round. No scleral icterus. No injection or drainage. No nasal bleeding or discharge. Mucous membranes pink and moist. NECK: Trachea midline. CARDIOVASCULAR: Regular rate and rhythm. RESPIRATORY: Nonlabored. Clear to auscultation. Breath sounds equal bilaterally. GASTROINTESTINAL: Abdomen soft, non-tender, nondistended. +BS. MUSCULOSKELETAL: Extremities without clubbing, cyanosis, or edema. No obvious deformities. NEUROLOGICAL: Awake and alert. No obvious cranial nerve deficits. Motor grossly within normal limits. Able to move all extremities spontaneously. No focal neurologic findings noted. Normal speech. PSYCHIATRIC: Calm and cooperative. - Urinary Catheter Management Indwelling Urethral Catheter Cath placed during this visit: yes, but has since been removed by the nurse Reason for continuing: Decision to DC catheter Insertion date: 12/11/17 Insertion time: 13:42 Removal date: 12/12/17 Removal time: 11:31 Results - Labs CBC & Chem 7: 12/14/17 07:01 12/14/17 07:01 Laboratory Results - last 24 hr 12/14/17 12/14/17 12/14/17 07:01 07:01 13:47 WBC 6.1 RBC 3.89 L Hgb 11.9 L Hct 35.6 L MCV 91.5 MCH 30.6 MCHC 33.5 RDW 12.5 Plt Count 197 MPV 9.0 Neut % (Auto) 52.2 Lymph % (Auto) 35.1 [place] % (Auto) 7.7 Eos % (Auto) 4.4 H Baso % (Auto) 0.6 Neut # (Auto) 3.2 Lymph # (Auto) 2.2 [place] # (Auto) 0.5 Eos # (Auto) 0.3 Baso # (Auto) 0.0 WBC Differential . Differential Comment Auto diff final Sodium 143 Potassium 3.8 Chloride 107 Carbon Dioxide 30.2 Anion Gap 6 BUN 7 Creatinine 1.17 Estimated GFR 84 L Random Glucose 101 Calcium 8.2 L Total Bilirubin 0.5 AST 51 H ALT 77 Alkaline Phosphatase 62 Total Creatine Kinase 960 H CK-MB (CK-2) 1.3 CK-MB (CK-2) % 0.1 Total Protein 6.5 Albumin 3.0 L Urine Color Yellow Urine Clarity Clear Urine pH 7.0 Ur Specific [place] 1.014 Urine Protein Negative Urine Glucose (UA) Negative Urine Ketones Negative Urine Occult Blood Negative Urine Nitrate Negative Urine Bilirubin Negative Urine Urobilinogen 4 or greater Ur Leukocyte Esterase Negative Urine RBC Less than 1 Urine WBC Less than 1 Urine Mucus Few H Micro UA Comment Culture not ind Ur Microscopic Review Not Reportable Urine Culture Comments Culture not ind - Procedures None Assessment and Plan - Assessment (1) Cocaine abuse Code(s): F14.10 - Cocaine abuse, uncomplicated Status: Acute (2) Substance induced mood disorder Code(s): F19.94 - Other psychoactive substance use, unspecified with psychoactive substance-induced mood disorder Status: Acute (3) Altered mental status Code(s): R41.82 - Altered mental status, unspecified Status: Acute (4) Required emergent intubation Code(s): Z98.890 - Other specified postprocedural states Status: Acute (5) Acute renal failure Code(s): N17.9 - Acute kidney failure, unspecified Status: Acute (6) Rhabdomyolysis Code(s): M62.82 - Rhabdomyolysis Status: Acute - Plan 42-year-old male admitted secondary to toxic encephalopathy with rhabdomyolysis secondary to drug abuse. Discharged yesterday. Discharge held secondary to complaints of dizziness. No dizziness today. No interval change. D/C to home. DW nursing staff. No adverse events noted overnight. Acute toxic encephalopathy- resolved Acute hypoxic and hypercarbic respiratory failure- resolved Sinus tachycardia- resolved Cocaine abuse UDS positive for cocaine and benzodiazepines Patient counseled to quit drug abuse Continue multivitamin monitor respiratory status Dizziness, possibly vertigo, possibly due to withdrawal, resolved re-evaluated by PT - cleared for d/c to home with no PT needs identified Meclizine prn dizziness Orthostatic BP measurements negative Monitor for improvement Acute kidney injury- resolving. Acute rhabdomyolysis- resolving. CK trending down, kidney fxn improving No longer on IV hydration Encourage po fluid intake Monitor renal function Hypertensive, suspect secondary to withdrawal Continue on Clonidine scheduled Urinary discomfort UCX 12/11 with no growth repeat UA negative DVT Prophylaxis SCDs Lovenox Discussed Condition With: patient, nursing staff, Dr. Medrano Discharge Planning: Discharge to home (3) Altered mental status Qualifiers: Altered mental status type: coma Coma depth: Tammy coma 3-8 Coma timing: at arrival to emergency department Qualified Code(s): R40.2432 - Tammy coma scale score 3-8, at arrival to emergency department (5) Acute renal failure Qualifiers: Acute renal failure type: unspecified Qualified Code(s): N17.9 - Acute kidney failure, unspecified (6) Rhabdomyolysis Qualifiers: Rhabdomyolysis type: non-traumatic Qualified Code(s): M62.82 - Rhabdomyolysis
[2017-12-15] MEDS: Famotidine 20 MG Tablet PO SCH (09:22)
[2017-12-15] MEDS: Sodium Chloride 0.9% 2 ML Flush BID IV.FLUSH SCH (09:25)
[2017-12-15 09:28] VITALS: BP 140/75; PULSE 56; RESP 16; TEMP 98.3
== END 2017-12-15 13:49 | disposition home or self-care (01) ==
LOC: NEPE 13:17 → NEDA 16:33 → MERGE 16:33 → EDBD 16:33 → N03 17:50 → NEDA 17:54 → N06 12-13 18:07
PROVIDERS: ADMIT Hospitalist; ATTEND Hospitalist

== ENCOUNTER 2018-01-16 20:28 | Inpatient (IN) ==
[2018-01-16] MEDS ORDERED: Sod Chloride 0.9% Inj 1,000 ML IV.SIG SCH ×2 (21:00→22:15)
--- NOTE | 2018-01-16 21:35 | XR ---
EXAM DATE: 01/16/2018 9:09 PM EST AGE/SEX: 42 years / Male INDICATIONS: Chest Pain CLINICAL DATA: This is the patient's initial encounter. Patient reports that signs and symptoms have been present for 1 day and indicates a pain score of 6/10. MEDICAL/SURGICAL HISTORY: None. None. COMPARISON: [facility] [place]ST 1V SINGLE AP, 12/11/2017. . FINDINGS: Portable AP view of the chest demonstrates a normal-sized cardiac silhouette. EKG lines overlie the p atient. No effusion, consolidation, or pneumothorax is identified. The bones and soft tissues demonst rate no acute finding. CONCLUSION: No acute cardiopulmonary abnormality is identified. Electronically signed by: Clinton Sanders MD 01/16/2018 9:34 PM EST
--- NOTE | 2018-01-16 21:36 | ED ---
HPI General Chief Complaint: Chest Pain Stated Complaint: Chest pain Time Seen by Provider: 01/16/18 20:40 Source: patient Mode of arrival: EMS Limitations: no limitations History of Present Illness HPI narrative: 42-year-old male came to the emergency room brought in by EMS after running on a cocaine binge for past 2 days. Patient says that he did not eat or drink anything and did a lot of cocaine and Xanax. Today an hour prior to calling the ambulance he started getting intense chest pain and palpitations. He felt like his heart was racing. Currently he is experiencing some abdominal pain as well. He describes the pain in his entire chest and abdomen. No history of vomiting or diarrhea. Patient was tachycardic upon arrival. No aggravating or relieving some is identified for the pain. No radiation of the pain. Patient says that he was seen in the emergency room about a month back with similar condition after cocaine abuse. At that time apparently he was intubated as well. Currently he is awake and answering questions appropriately. Patient has psych history and is supposed to be on psych medications but not compliant. No history of previous coronary artery disease. Related Data Home Medications Medication Instructions Recorded Confirmed No Known Home Medications 11/30/17 11/30/17 Unable to Obtain Home Meds 12/11/17 12/11/17 Previous Rx's Medication Instructions Recorded meclizine 25 mg PO Q8H PRN #15 tab 12/14/17 clonidine HCl [Catapres] 0.2 mg PO Q8HR #90 tab 12/15/17 Allergies Allergy/AdvReac Type Severity Reaction Status Date / Time No Known Allergies Allergy Verified 12/13/17 13:25 Review of Systems ROS: all other systems reviewed are negative [facility] Medical History Medical History Manic depression (Acute) Schizophrenia (Acute) Social History Social History Substance History: Active Abuse Second Hand Smoke Exposure: Yes Smoking Status: Current every day smoker Tobacco Type: Cigarettes How Often Do You Have a Drink Containing Alcohol: 2 to 4 times a month Recent Travel in [facility] within the Last 8 Weeks: No Recent Out of Country Travel within the Last 8 Weeks: No Substance Abuse Detail Crack/Cocaine: Substance Use Status: Active Benzodiazepines: Substance Use Status: Active Marijuana: Substance Use Status: Active Immunization History Tetanus Immunization: <5 Years Exam Narrative Exam Narrative: GENERAL: Awake, alert, anxious, moderate distress SKIN: Focused skin assessment warm/dry. HEAD: Atraumatic. Normocephalic. EYES: Pupils equal and round. No scleral icterus. No injection or drainage. ENT: No nasal bleeding or discharge. Mucous membranes pink and moist. NECK: Trachea midline. No JVD. CARDIOVASCULAR: Regular rate and rhythm. No murmur appreciated. RESPIRATORY: No accessory muscle use. Clear to auscultation. Breath sounds equal bilaterally. GASTROINTESTINAL: Abdomen soft, non-tender, nondistended. Hepatic and splenic margins not palpable. MUSCULOSKELETAL: No obvious deformities. No clubbing. No cyanosis. No edema. NEUROLOGICAL: Awake and alert. No obvious cranial nerve deficits. Motor grossly within normal limits. Normal speech. PSYCHIATRIC: Appropriate mood and affect; insight and judgment normal. Course Initial Documented Vital Signs Temperature 98.9 F 01/16/18 20:34 Pulse Rate 103 H 01/16/18 20:34 Respiratory Rate 20 01/16/18 20:34 Blood Pressure 148/86 H 01/16/18 20:34 Pulse Oximetry 96 01/16/18 20:34 Last Documented Vital Signs Temperature 98.9 F 01/16/18 20:34 Pulse Rate 103 H 01/16/18 20:34 Respiratory Rate 20 01/16/18 20:34 Blood Pressure 148/86 H 01/16/18 20:34 Pulse Oximetry 96 01/16/18 21:27 Medical Decision Making MDM Narrative Medical decision making narrative: 9:35 PM awaiting for blood test result. Patient was ordered for 1 mg of IV Ativan. IV fluid has been ordered. If the blood test is negative he probably will be discharged home. 10:09 PM blood test results are back and CPK is significantly elevated. I have ordered for a second liter of IV fluid bolus. His heart rate has come down to 95 bpm at this point. Patient will require admission for rhabdomyolysis. Awaiting for the hospitalist to call back. Medical Screen Exam Complete: Yes Emergency Medical Condition: Yes Lab Data Result diagrams: 01/16/18 21:05 01/16/18 21:05 Lab Results 01/16/18 01/16/18 01/16/18 Range/Units 21:05 21:05 21:05 WBC 10.3 (4.0-11.0) th/mm3 RBC 4.73 (4.50-5.90) mil/mm3 Hgb 14.3 (13.0-17.0) gm/dL Hct 42.7 (39.0-51.0) % MCV 90.2 (80.0-100.0) fL MCH 30.1 (27.0-34.0) pg MCHC 33.4 (32.0-36.0) % RDW 13.0 (11.6-17.2) % Plt Count 202 (150-450) th/mm3 MPV 8.8 (7.0-11.0) fL Neut % (Auto) 60.4 (16.0-70.0) % Lymph % (Auto) 28.1 (9.0-44.0) % [place] % (Auto) 9.3 H (0.0-8.0) % Eos % (Auto) 1.6 (0.0-4.0) % Baso % (Auto) 0.6 (0.0-2.0) % Neut # (Auto) 6.2 (1.8-7.7) th/mm3 Lymph # (Auto) 2.9 (1.0-4.8) th/mm3 [place] # (Auto) 1.0 H (0.0-0.9) th/mm3 Eos # (Auto) 0.2 (0.0-0.4) th/mm3 Baso # (Auto) 0.1 (0.0-0.2) th/mm3 WBC Differential . Differential Comment Auto diff final Sodium 134 L (136-145) meq/L Potassium 3.4 L (3.5-5.1) meq/L Chloride 100 (98-107) meq/L Carbon Dioxide 24.1 (21.0-32.0) meq/L Anion Gap 10 (5-15) meq/L BUN 18 (7-18) mg/dL Creatinine 1.31 H (0.60-1.30) mg/dL Estimated GFR 73 L (>89) mL/min Random Glucose 100 (74-106) mg/dL Calcium 8.9 (8.5-10.1) mg/dL Total Bilirubin 1.1 H (0.2-1.0) mg/dL AST 113 H (15-37) U/L ALT 65 (12-78) U/L Alkaline Phosphatase 63 (45-117) U/L Total Creatine Kinase 4451 H (39-308) U/L Troponin I Less than 0.02 L (0.02-0.05) ng/mL Total Protein 8.4 H (6.4-8.2) g/dL Albumin 4.5 (3.4-5.0) g/dL Lipase 86 Cancelled (73-393) U/L 01/16/18 Range/Units 21:05 WBC (4.0-11.0) th/mm3 RBC (4.50-5.90) mil/mm3 Hgb (13.0-17.0) gm/dL Hct (39.0-51.0) % MCV (80.0-100.0) fL MCH (27.0-34.0) pg MCHC (32.0-36.0) % RDW (11.6-17.2) % Plt Count (150-450) th/mm3 MPV (7.0-11.0) fL Neut % (Auto) (16.0-70.0) % Lymph % (Auto) (9.0-44.0) % [place] % (Auto) (0.0-8.0) % Eos % (Auto) (0.0-4.0) % Baso % (Auto) (0.0-2.0) % Neut # (Auto) (1.8-7.7) th/mm3 Lymph # (Auto) (1.0-4.8) th/mm3 [place] # (Auto) (0.0-0.9) th/mm3 Eos # (Auto) (0.0-0.4) th/mm3 Baso # (Auto) (0.0-0.2) th/mm3 WBC Differential Differential Comment Sodium (136-145) meq/L Potassium (3.5-5.1) meq/L Chloride (98-107) meq/L Carbon Dioxide (21.0-32.0) meq/L Anion Gap (5-15) meq/L BUN (7-18) mg/dL Creatinine (0.60-1.30) mg/dL Estimated GFR (>89) mL/min Random Glucose (74-106) mg/dL Calcium (8.5-10.1) mg/dL Total Bilirubin (0.2-1.0) mg/dL AST (15-37) U/L ALT (12-78) U/L Alkaline Phosphatase (45-117) U/L Total Creatine Kinase Cancelled (39-308) U/L Troponin I (0.02-0.05) ng/mL Total Protein (6.4-8.2) g/dL Albumin (3.4-5.0) g/dL Lipase (73-393) U/L Imaging Data Radiologist's impression: Chest X-Ray 01/16/18 20:51 CONCLUSION: No acute cardiopulmonary abnormality is identified. ECG Data Attestation: I personally reviewed and interpreted this ECG as follows: Interpretation: Twelve-lead EKG was reviewed by me. Normal sinus rhythm, left axis deviation, tachycardia cardia, nonspecific ST-T wave changes. Heart rate of 101 bpm. Discharge Plan Discharge Disposition Patient Disposition: ED Admit(ED Internal Use Only) Physicians Team ED Provider: Martin Garcia Primary Care Provider: Primary Care Physici,Catarina Rxs /Orders / Referrals /Forms Prescriptions: No Action No Known Home Medications RF: 0 Unable to Obtain Home Meds RF: 0 meclizine 25 mg Tablet 25 mg PO Q8H PRN (Reason: Dizziness) Qty: 15 RF: 0 clonidine HCl [Catapres] 0.2 mg Tablet 0.2 mg PO Q8HR Qty: 90 RF: 0 Discharge Instructions Patient Printed Instructions: Chest Pain (ED) Status ED Status: With Doctor
[2018-01-16 21:37] LABS: Baso # (Auto) 0.1 th/mm3 (0.0-0.2); Baso % (Auto) 0.6 % (0.0-2.0); Eos # (Auto) 0.2 th/mm3 (0.0-0.4); Eos % (Auto) 1.6 % (0.0-4.0); Hematocrit 42.7 % (39.0-51.0); Hemoglobin 14.3 gm/dL (13.0-17.0); Lymph # (Auto) 2.9 th/mm3 (1.0-4.8); Lymph % (Auto) 28.1 % (9.0-44.0); Mean Corpuscular HGB Conc 33.4 % (32.0-36.0); Mean Corpuscular Hemoglobin 30.1 pg (27.0-34.0); Mean Corpuscular Volume 90.2 fL (80.0-100.0); Mean Platelet Volume 8.8 fL (7.0-11.0); Mono % (Auto) 9.3 % (0.0-8.0); Neut # (Auto) 6.2 th/mm3 (1.8-7.7); Neut % (Auto) 60.4 % (16.0-70.0); Platelet Count 202 th/mm3 (150-450); Red Blood Count 4.73 mil/mm3 (4.50-5.90); White Blood Count 10.3 th/mm3 (4.0-11.0)
[2018-01-16 21:50] LABS: Albumin 4.5 g/dL (3.4-5.0); Anion Gap 10 meq/L (5-15); Aspartate Aminotransferase 113 U/L (15-37); Blood Urea Nitrogen 18 mg/dL (7-18); Calcium 8.9 mg/dL (8.5-10.1); Carbon Dioxide 24.1 meq/L (21.0-32.0); Chloride 100 meq/L (98-107); Glomerular Filtration Rate 73 mL/min (>89); Glucose,Random 100 mg/dL (74-106); Lipase 86 U/L (73-393); Potassium 3.4 meq/L (3.5-5.1); Sodium 134 meq/L (136-145)
[2018-01-16 21:52] LABS: Alanine Aminotransferase 65 U/L (12-78)
[2018-01-16 22:06] LABS: Alkaline Phosphatase 63 U/L (45-117); Creatine Kinase 4451 U/L (39-308); Total Protein 8.4 g/dL (6.4-8.2)
[2018-01-16 22:18] LABS: CKMB Percent 0.5 % (0.0-4.0); Creatine Kinase MB 22.3 ng/mL (0.5-3.6)
[2018-01-16] MEDS ORDERED: Bisacodyl 10 MG Supp RECTAL PRN (23:10)
[2018-01-16] MEDS ORDERED: Acetaminophen 325 MG Tablet PO PRN (23:10)
--- NOTE | 2018-01-16 23:42 | P.HPIM ---
History of Present Illness Service: [facility] Primary Care Physician: No Primary Care Physician Chief Complaint: chest pressure History of Present Illness: 42 y/o male with a history of depression presented to the ED with complaints of chest pressure. He states for the last 2 days he has been doing a lot cocaine and Xanax. He states he has not been eating or drinking for the past 2 days. 1 hour prior to coming the ED he developed chest pain, constant, 8/10, with no radiation or associated symptoms. Upon evaluation patient is denying any pain and is asking for food. No sob, fever, chills or dysuria noted. Inpatient Certification Inpatient Certification: I certify that the inpatient services were ordered in accordance with Medicare regulations governing the order. This includes certification that hospital inpatient services are reasonable and necessary and in the case of services not specified as inpatient-only under 42 CFR 419.22(n), that they are appropriately provided as inpatient services in accordance to with the 2-midnight benchmark under 43 CFR 412.3(e) Estimated Total Length of Stay (Days): 2 Plans for Post Hospital Care: Home Review of Systems Review of Systems: all other systems reviewed are negative [facility] Medical History Medical History Family history unknown (Acute) No significant past surgical history (Acute) Manic depression (Acute) Schizophrenia (Acute) Family History Family History Other Family history unknown Social History Social History Substance History: Active Abuse Second Hand Smoke Exposure: Yes Smoking Status: Current every day smoker Tobacco Type: Cigarettes How Often Do You Have a Drink Containing Alcohol: 2 to 4 times a month Recent Travel in [facility] within the Last 8 Weeks: No Recent Out of Country Travel within the Last 8 Weeks: No Substance Abuse Detail Crack/Cocaine: Substance Use Status: Active Benzodiazepines: Substance Use Status: Active Marijuana: Substance Use Status: Active Immunization History Tetanus Immunization: <5 Years Medications and Allergies Allergies Allergy/AdvReac Type Severity Reaction Status Date / Time No Known Allergies Allergy Verified 12/13/17 13:25 Home Medications Medication Instructions Recorded Confirmed Type quetiapine [Seroquel] 300 mg PO HS 01/16/18 01/16/18 History Active Medications: Active Medications Acetaminophen (Tylenol) 650 mg PO Q4H PRN PRN Reason: Temp > 100.4 Al Hydroxide/Mg Hydroxide (Milk Of Magnesia Liq) 30 ml PO Q12H PRN PRN Reason: Mild Constipation Bisacodyl (Dulcolax Supp) 10 mg RECTAL DAILY PRN PRN Reason: SEVERE CONSITIPATION Sodium Chloride (Ns Inj) 1,000 mls @ 200 mls/hr IV.CONT .Q5H JOB Lactulose (Lactulose Liq) 30 ml PO DAILY PRN PRN Reason: SEVERE CONSITIPATION Ondansetron HCl (Zofran Inj) 4 mg IV.PUSH Q6H PRN PRN Reason: NAUSEA OR VOMITING Sennosides (Senokot) 17.2 mg PO Q12H PRN PRN Reason: Moderate Constipation Sodium Chloride (Ns Flush) 2 ml IV.FLUSH UNSCH PRN PRN Reason: FLUSH AFTER USING IV ACCESS Sodium Chloride (Ns Flush) 2 ml IV.FLUSH BID JOB Sodium Chloride (Ns Flush) 2 ml IV.FLUSH PRN PRN PRN Reason: FLUSH AFTER USING IV ACCESS Physical Exam Vital signs: Last Vital Signs Temp 98.9 F 01/16/18 20:34 Pulse 103 H 01/16/18 20:34 Resp 20 01/16/18 20:34 BP 148/86 H 01/16/18 20:34 Pulse Ox 96 01/16/18 21:27 Intake & Output 01/14/18 01/15/18 01/16/18 01/17/18 06:59 06:59 06:59 06:59 Intake Total 1999 Balance 1999 Weight 250 kg Narrative: GENERAL: Well-nourished patient in no acute distress, asking for food SKIN: Warm and dry. No lesions, abrasions or skin tears noted HEAD: Atraumatic. Normocephalic. EYES: Pupils equal and round. No scleral icterus. No injection or drainage. CARDIOVASCULAR: Tachycardia rate and rhythm. RESPIRATORY: No accessory muscle use. Clear to auscultation. Breath sounds equal bilaterally. GASTROINTESTINAL: Abdomen soft, non-tender, nondistended. Hepatic and splenic margins not palpable. MUSCULOSKELETAL: Extremities without clubbing, cyanosis, or edema. No obvious deformities. NEUROLOGICAL: Awake and alert. Motor grossly within normal limits. Normal speech. Results Labs CBC & Chem 7: 01/16/18 21:05 01/16/18 21:05 Imaging Impressions Chest X-Ray 01/16/18 20:51 CONCLUSION: No acute cardiopulmonary abnormality is identified. Caprini VTE Risk Assessment Caprini VTE Risk Assessment: No/Low Risk (score <= 1) Caprini Risk Assessment Model: Point Value = 1 Point Value = 2 Point Value = 3 Point Value = 5 Age 41-60 Minor surgery BMI > 25 kg/m2 Swollen legs Varicose veins or History of unexplained or recurrent spontaneous Oral contraceptives or hormone replacement Sepsis (< 1 month) Serious lung disease, including pneumonia (< 1 month) Abnormal pulmonary function Acute myocardial infarction Congestive heart failure (< 1 month) History of inflammatory bowel disease Medical patient at bed rest Age 61-74 Arthroscopic surgery Major open surgery (> 45 min) Laparoscopic surgery (> 45 min) Malignancy Confined to bed (> 72 hours) Immobilizing plaster cast Central venous access Age >= 75 History of VTE Family history of VTE Factor V Leiden Prothrombin [id number] Lupus anticoagulant Anticardiolipin antibodies Elevated serum homocysteine Heparin-induced thrombocytopenia Other congenital or acquired thrombophilia Stroke (< 1 month) Elective arthroplasty Hip, pelvis, or leg fracture Acute spinal cord injury (< 1 month) Prophylaxis Regimen: Total Risk Factor Score Risk Level Prophylaxis Regimen 0-1 Low Early ambulation 2 Moderate Order ONE of the following: *Sequential Compression Device (SCD) *Heparin 5000 units SQ BID 3-4 Higher Order ONE of the following medications: *Heparin 5000 units SQ TID *Enoxaparin/Lovenox 40 mg SQ daily (WT < 150 kg, CrCl > 30 mL/min) *Enoxaparin/Lovenox 30 mg SQ daily (WT < 150 kg, CrCl > 10-29 mL/min) *Enoxaparin/Lovenox 30 mg SQ BID (WT < 150 kg, CrCl > 30 mL/min) AND/OR *Sequential Compression Device (SCD) 5 or more Highest Order ONE of the following medications: *Heparin 5000 units SQ TID (Preferred with Epidurals) *Enoxaparin/Lovenox 40 mg SQ daily (WT < 150 kg, CrCl > 30 mL/min) *Enoxaparin/Lovenox 30 mg SQ daily (WT < 150 kg, CrCl > 10-29 mL/min) *Enoxaparin/Lovenox 30 mg SQ BID (WT < 150 kg, CrCl > 30 mL/min) AND *Sequential Compression Device (SCD) Assessment and Plan Plan 42 y/o male with a history of depression presented to the ED with complaints of chest pressure. Rhabdomyolysis secondary to dehydration CK 4451 -IVF -Serial CK Q6H Chest pain, likely secondary to cocaine use Troponin less than 0.02 EKG reviewed shows no ST elevation or depression -Monitor telemetry, will hold off on trending enzymes due to cocaine use Acute kidney injury likely due to dehydration Creatinine 1.3 -Continue with IVF as above -Labs in a.m. Depression -Resume home Seroquel Cocaine abuse, chronic -Encouraged to stop, counseling provided DVT prophylaxis: SCDs
[2018-01-17 01:00] LABS: CKMB Percent 0.5 % (0.0-4.0); Creatine Kinase MB 17.6 ng/mL (0.5-3.6)
[2018-01-17] MEDS: Sod Chloride 0.9% Inj 1,000 ML IV.CONT SCH ×7 (01:10→23:26)
--- NOTE | 2018-01-17 09:46 | P.PN ---
Subjective Interval history: Follow up for rhabdomyolysis, cocaine abuse. The patient reports feeling much better today. He denies any further chest pain, does report some continued diffuse muscle aches. He admits to binging on cocaine over the past few days with minimal oral intake. He denies any urinary complaints, but has noticed dark yellow urine. Denies any other medical complaints including no fever/ chills, lightheadedness, dizziness, shortness of breath, palpitations, or abdominal complaints. Physical Exam Vital signs: Vital Signs 01/16/18 20:34 01/16/18 21:27 01/17/18 00:00 Temperature 98.9 F 97.9 F Pulse Rate 103 H 99 H Respiratory Rate 20 20 Blood Pressure 148/86 H 148/78 H Pulse Oximetry 96 96 96 01/17/18 04:00 01/17/18 08:00 Temperature 98.1 F Pulse Rate 85 87 Respiratory Rate 16 18 Blood Pressure 128/75 140/72 Pulse Oximetry 98 97 Intake & Output 01/16/18 01/17/18 01/17/18 18:59 06:59 18:59 Intake Total 3000 / 3000 1000 / 1000 Balance 3000 / 3000 1000 / 1000 Weight 250 kg Intake: IV 3000 / 3000 1000 / 1000 NS Inj 1,000 ML @ 200 mls/hr IV 1000 / 1000 1000 / 1000 .CONT .Q5H JOB Rx#:[id number] NS Inj 1,000 ML @ 1000 mls/hr 1999 / 1999 IV.SIG BOLUS JOB Rx#:[id number] Narrative: GENERAL: Well-nourished, well-developed pleasant AA male patient in [facility]. SKIN: Warm and dry. No rash. HEENT: Normocephalic. Atraumatic. Pupils equal and round. Mucous membranes pink and moist. CARDIOVASCULAR: Regular rate and rhythm. No murmur appreciated. RESPIRATORY: No accessory muscle use. Clear to auscultation. Breath sounds equal bilaterally. GASTROINTESTINAL: Abdomen soft, non-tender, nondistended. Normoactive bowel sounds x4. MUSCULOSKELETAL: No obvious deformities. Extremities without clubbing, cyanosis , or edema. Bilateral calves nontender to palpation. NEUROLOGICAL: Awake and alert. No obvious cranial nerve deficits. Moving all extremities spontaneously. Normal speech. PSYCHIATRIC: Appropriate mood and affect; insight and judgment normal. Results - Labs CBC & Chem 7: 01/16/18 21:05 01/16/18 21:05 Laboratory Results - last 24 hr 01/16/18 01/16/18 01/16/18 21:05 21:05 21:05 WBC 10.3 RBC 4.73 Hgb 14.3 Hct 42.7 MCV 90.2 MCH 30.1 MCHC 33.4 RDW 13.0 Plt Count 202 MPV 8.8 Neut % (Auto) 60.4 Lymph % (Auto) 28.1 [place] % (Auto) 9.3 H Eos % (Auto) 1.6 Baso % (Auto) 0.6 Neut # (Auto) 6.2 Lymph # (Auto) 2.9 [place] # (Auto) 1.0 H Eos # (Auto) 0.2 Baso # (Auto) 0.1 WBC Differential . Differential Comment Auto diff final Sodium 134 L Potassium 3.4 L Chloride 100 Carbon Dioxide 24.1 Anion Gap 10 BUN 18 Creatinine 1.31 H Estimated GFR 73 L Random Glucose 100 Calcium 8.9 Total Bilirubin 1.1 H AST 113 H ALT 65 Alkaline Phosphatase 63 Total Creatine Kinase 4451 H CK-MB (CK-2) 22.3 H CK-MB (CK-2) % 0.5 Troponin I Less than 0.02 L Total Protein 8.4 H Albumin 4.5 Lipase 86 Cancelled 01/16/18 01/16/18 21:05 23:53 WBC RBC Hgb Hct MCV MCH MCHC RDW Plt Count MPV Neut % (Auto) Lymph % (Auto) [place] % (Auto) Eos % (Auto) Baso % (Auto) Neut # (Auto) Lymph # (Auto) [place] # (Auto) Eos # (Auto) Baso # (Auto) WBC Differential Differential Comment Sodium Potassium Chloride Carbon Dioxide Anion Gap BUN Creatinine Estimated GFR Random Glucose Calcium Total Bilirubin AST ALT Alkaline Phosphatase Total Creatine Kinase Cancelled 3765 H CK-MB (CK-2) 17.6 H CK-MB (CK-2) % 0.5 Troponin I Total Protein Albumin Lipase - Imaging Impressions Chest X-Ray 01/16/18 20:51 CONCLUSION: No acute cardiopulmonary abnormality is identified. Assessment and Plan - Plan 42-year-old male with history of depression presents with complaints of chest pressure and body aches after binging on cocaine/Xanax times 2 days Acute rhabdomyolysis: Secondary to polysubstance abuse, especially with cocaine , in combination with dehydration -Trend CPK, 4451 --> 3765 --> 3836 --> 2836 -Continue aggressive IVF hydration -monitor BMP/CPK Chest Pain: suspect secondary to cocaine abuse, no hx of CAD -troponins negative -EKG without acute ischemic changes -given IVF hydration -chest pain resolved DAVID: Cr 1.3. Suspect secondary to rhabdo and dehydration -give IVF hydration -avoid nephrotoxins -monitor renal function Depression: chronic -continue home seroquel Polysubstance Abuse: patient admits to binging on cocaine/xanax -counseled on cessation, patient motivated to quit DVT Prophylaxis: SCDs Discharge Planning: Plan to discharge when CPK < 1500 and if renal function shows improvement.
[2018-01-17 11:05] LABS: CKMB Percent 0.4 % (0.0-4.0); Creatine Kinase MB 12.1 ng/mL (0.5-3.6)
[2018-01-17 15:55] LABS: Calcium 7.3 mg/dL (8.5-10.1); Carbon Dioxide 28.5 meq/L (21.0-32.0); Potassium 4.1 meq/L (3.5-5.1)
[2018-01-17 16:10] LABS: Albumin 3.3 g/dL (3.4-5.0); Calcium-Albumin Corrected 7.9 mg/dL (8.5-10.1)
[2018-01-17] MEDS ORDERED: Calcium Gluconate Inj 1 GM in Dextrose 5% in Water Inj 100 ML IV.SIG ONE ×2 (16:26)
[2018-01-17 16:44] LABS: Amphetamine Screen,Urine Neg (Neg); Barbiturate Screen,Urine Neg (Neg); Cannabinoid Screen,Urine Neg (Neg); Cocaine Screen,Urine Pos (Neg); Opiate Screen,Urine Neg (Neg)
[2018-01-17 16:46] LABS: CKMB Percent 0.4 % (0.0-4.0); Creatine Kinase MB 8.7 ng/mL (0.5-3.6)
[2018-01-18] MEDS: Sod Chloride 0.9% Inj 1,000 ML IV.CONT SCH ×2 (04:23→06:21)
[2018-01-18 08:38] LABS: CKMB Percent 0.4 % (0.0-4.0); Creatine Kinase MB 4.8 ng/mL (0.5-3.6)
--- NOTE | 2018-01-18 09:58 | P.PN ---
Subjective Interval history: Follow up for rhabdomyolysis, cocaine abuse. The patient reports feeling better today. Denies any chest pain or shortness of breath. He reports feeling slightly sore, however significantly improved. Urine becoming more clear. Denies any other medical complaints at this time. Physical Exam Vital signs: Vital Signs 01/17/18 11:39 01/17/18 16:00 01/17/18 20:00 Temperature 98.1 F Pulse Rate 84 86 82 Respiratory Rate 16 18 16 Blood Pressure 136/77 109/56 L 133/65 Pulse Oximetry 96 95 97 01/18/18 00:00 01/18/18 08:00 Temperature 97.8 F 98.0 F Pulse Rate 108 H 99 H Respiratory Rate 12 18 Blood Pressure 119/60 139/86 Pulse Oximetry 95 97 Intake & Output 01/17/18 01/18/18 01/18/18 18:59 06:59 18:59 Intake Total 1999 / 2109 1000 / 1000 Balance 1999 1000 / 1000 Intake: IV 1999 1000 / 1000 NS Inj 1,000 ML @ 250 mls/hr IV 1999 1000 / 1000 .CONT .Q4H JOB Rx#:[id number] Calcium Gluconate Inj 1 GM In 110 / 110 D5W Inj 100 ML @ 110 mls/hr IV. SIG ONCE ONE Rx#:[id number] Narrative: GENERAL: Well-nourished, well-developed pleasant AA male patient in [facility]. SKIN: Warm and dry. No rash. HEENT: Normocephalic. Atraumatic. Pupils equal and round. Mucous membranes pink and moist. CARDIOVASCULAR: Regular rate and rhythm. No murmur appreciated. RESPIRATORY: No accessory muscle use. Clear to auscultation. Breath sounds equal bilaterally. GASTROINTESTINAL: Abdomen soft, non-tender, nondistended. Normoactive bowel sounds x4. MUSCULOSKELETAL: No obvious deformities. Extremities without clubbing, cyanosis , or edema. NEUROLOGICAL: Awake and alert. No obvious cranial nerve deficits. Moving all extremities spontaneously. Normal speech. PSYCHIATRIC: Appropriate mood and affect; insight and judgment normal. Results - Labs CBC & Chem 7: 01/16/18 21:05 01/17/18 14:57 Laboratory Results - last 24 hr 01/17/18 01/17/18 01/17/18 09:48 14:18 14:57 Sodium 141 Potassium 4.1 Chloride 107 Carbon Dioxide 28.5 Anion Gap 6 BUN 15 Creatinine 1.15 Estimated GFR 85 L Random Glucose 100 Calcium 7.3 L* D Calcium Adj for Albumin 7.9 L Total Creatine Kinase 2836 H 2156 H CK-MB (CK-2) 12.1 H 8.7 H CK-MB (CK-2) % 0.4 0.4 Troponin I Albumin 3.3 L D Urine Opiates Screen Neg Ur Barbiturates Screen Neg Ur Amphetamines Screen Neg U Benzodiazepines Scrn Neg Urine Cocaine Screen Pos H U Cannabinoids Screen Neg 01/17/18 01/18/18 14:57 05:55 Sodium Potassium Chloride Carbon Dioxide Anion Gap BUN Creatinine Estimated GFR Random Glucose Calcium Calcium Adj for Albumin Total Creatine Kinase 1317 H CK-MB (CK-2) 4.8 H CK-MB (CK-2) % 0.4 Troponin I Less than 0.02 L Albumin Urine Opiates Screen Ur Barbiturates Screen Ur Amphetamines Screen U Benzodiazepines Scrn Urine Cocaine Screen U Cannabinoids Screen - Imaging Chest X-Ray 01/16/18 20:51 CONCLUSION: No acute cardiopulmonary abnormality is identified. Assessment and Plan - Plan 42-year-old male with history of depression presents with complaints of chest pressure and body aches after binging on cocaine/Xanax times 2 days Acute rhabdomyolysis: Secondary to polysubstance abuse, especially with cocaine , in combination with dehydration -Continue aggressive IVF hydration -monitor BMP/CPK -Trend CPK, 4451 --> 3765 --> 3836 --> 2836 --> 1317 today -stable for discharge, encourage po fluid intake after discharge Chest Pain: suspect secondary to cocaine abuse, no hx of CAD -serial troponins negative -EKG without acute ischemic changes -given IVF hydration -chest pain resolved DAVID: Cr 1.3. Suspect secondary to rhabdo and dehydration -given IVF hydration -avoid nephrotoxins -monitor renal function, improved, Cr 1.15 Depression: chronic -continue home seroquel Polysubstance Abuse: patient admits to binging on cocaine/xanax -counseled on cessation, patient motivated to quit DVT Prophylaxis: SCDs Discharge Planning: Discharge patient to home Condition on discharge: Stable Regular Diet as tolerated Ad Yolie activity Rx written: refilled patient's seroquel Follow-up with primary care physician
--- NOTE | 2018-01-18 10:02 | ECG ---
Date Performed: 01/16/2018 Time Performed: 20:40:45 PTAGE: 42 years EKG: SINUS TACHYCARDIA POSSIBLE LEFT ATRIAL ENLARGEMENT LEFT ANTERIOR FASCICULAR BLOCK Poor R wa ve progression ABNORMAL ECG NO PREVIOUS TRACING DOCTOR: Gilson Fierro Interpretating Date/Time 01/18/2018 10:00:46
== END 2018-01-18 10:22 | disposition home or self-care (01) ==
LOC: NEPE 20:28 → NEDA 22:33 → NEPFCDU 01-17 00:18
PROVIDERS: ADMIT Internal Medicine; ATTEND Internal Medicine